=== PATIENT | female | born 1970 | race Caucasian/White ===

== ENCOUNTER 2024-06-09 08:42 | Inpatient (IN) | payer MEDICAID ==
[~2024-06-09] VITALS: Ht 152.4 cm; Wt 86.0 kg
--- NOTE | 2024-06-09 09:05 | ECG ---
[facility] Test Date: 2024-06-09 Test Time: 08:52:47 Pat Name: SHANDRA SOTO Department: ER Room: 0295T Gender: F Bodily Injury Adjuster: LUZ ELENA : 1970 Requested By: ARTURO SHEPHERD Order Number: [id number] Reading MD: Sean Khan Measurements Intervals May Rate: 66 P: 0 ND: 0 QRS: 51 QRSD: 107 T: 36 QT: 419 QTc: 439 Interpretive Statements Atrial fibrillation Low voltage, precordial leads Electronically Signed On 06-12-2024 17:35:41 PST by Sean Khan Please click the below link to view image of tracing.
--- NOTE | 2024-06-09 09:11 | ED.PDOC ---
Altered Mental Status HPI Comments 53 year old female SHIVAM presents to the ED with chief complaint of ALOC. EMS reports patient has history of dementia and is normally A/O x 1, however, family noted today that patient was acting differently than normal. EMS relays patient was found to be standing in the bathroom doing nothing and was not answering questions appropriately, only using one word responses. EMS states patient on route to the ED was able to answer some questions, but some questions she would answering incorrectly. Patient is noted to be A/O x1 during triage. Patient unable to provide any further history at this time. Chief Complaint: ALOC Time Seen by MD: 09:07 Reviewed Notes: Nurses Notes, Director Software Notes, Medications, Allergies Allergies: Coded Allergies: NO KNOWN ALLERGIES (Unverified , 06/09/24) Information Source: Patient, Emergency Med Personnel Mode of Arrival: EMS Severity: Moderate Timing: Hours Duration: Since onset Prehospital treatment: None Quality: Decreased Alertness, Change in Behavior, Confusion Recent: None History of: Dementia Past Medical History PAST MEDICAL HISTORY: Dementia, Depression Surgical History: Denies all surgeries OUTSIDE SALES ACCOUNT MANAGER History: Denies all OUTSIDE SALES ACCOUNT MANAGER Hx Family History Family History: Reviewed,noncontributory to illness Social History Smoker: Non-Smoker Alcohol: Denies ETOH Use Drugs: Denies Drug Use Lives In: Home Unable to Obtain due to: Altered Mental Status All Other Systems: Reviewed and Negative Physical Exam General Appearance: Moderate Distress, Normal HEENT: Normal ENT Inspection, PERRL/EOMI Neck: Full Range of Motion, Non-Tender, Normal, Normal Inspection Respiratory: Chest Non-Tender, Lungs Clear, No Accessory Muscle Use, No Respiratory Distress, Normal Breath Sounds Cardiovascular: No Edema, No JVD, No Murmur, No Gallop, Normal Peripheral Pulses, Regular Rate/Rhythm Breast Exam: Deferred Gastrointestinal: No Organomegaly, Non Tender, No Pulsatile Mass, Normal Bowel Sounds, Soft Genitalia: Deferred Pelvic: Deferred Rectal: Deferred Extremities: No calf tenderness, Normal capillary refill, No pedal edema Musculoskeletal : Apperance: Normal Neurologic: rn primary care II-XII nml as Tested, Disoriented Cerebellar Function: NOT DONE Reflexes: NOT DONE Skin: Dry, Normal Color, Warm Peripheral Pulses: 3+ Radial (R), 3+ Radial (L) Lymphatic: No Adenopathy Was a procedure done? Was a procedure done?: No Differential Diagnosis (ALOC) Differential Diagnosis: Dehydration, Hypoglycemia, Encephalopathy X-Ray, Labs, Meds, VS Vital Signs Date Time Temp Pulse Resp B/P (MAP) Pulse Ox O2 Delivery O2 Flow Rate FiO2 06/09/24 11:00 65 12 120/63 (82) 96 06/09/24 10:45 97.6 62 12 129/62 (84) 100 97.6 06/09/24 09:49 78 19 96 Room Air* 0 21 06/09/24 09:49 98.1 78 16 121/52 (75) 96 98.1 06/09/24 08:52 66 06/09/24 08:50 97.8 70 18 124/77 (93) 95 Lab Test 06/09/24 09:30 Range/Units White Blood Count 6.2 4.4-10.8 10^3/uL Red Blood Count 4.53 4.0-5.20 10^6/uL Hemoglobin 14.0 12.2-16.2 g/dL Hematocrit 43.1 36.0-46.0 % Mean Corpuscular Volume 95.1 80.0-100.0 fL Mean Corpuscular Hemoglobin 31.0 28.0-32.0 pg Mean Corpuscular Hemoglobin Concent 32.5 32.0-36.0 g/dL Red Cell Distribution Width 12.6 11.8-14.3 % Platelet Count 223 140-450 10^3/uL Mean Platelet Volume 8.3 6.9-10.8 fL Neutrophils (%) (Auto) 75.1 37.0-80.0 % Lymphocytes (%) (Auto) 16.2 10.0-50.0 % Monocytes (%) (Auto) 6.9 0.0-12.0 % Eosinophils (%) (Auto) 1.4 0.0-7.0 % Basophils (%) (Auto) 0.4 0.0-2.0 % Neutrophils # (Auto) 4.7 1.6-8.6 10 ^3/uL Lymphocytes # (Auto) 1.0 0.4-5.4 10 ^3/uL Monocytes # (Auto) 0.4 0-1.3 10 ^3/uL Eosinophils # (Auto) 0.1 0-0.8 10 ^3/uL Basophils # (Auto) 0 0-0.2 10 ^3/uL Nucleated Red Blood Cells 0.1 % Troponin I High Sensitivity 24 </=34 ng/L Plasma/Serum Blood Alcohol < 3.0 <10 mg/dL CT Head: FINDINGS: There is no evidence of acute intracranial hemorrhage, extra-axial collection, mass effect, midline shift, herniation or hydrocephalus. The ventricles, sulci and cisterns are age appropriate. The thakur-white differentiation is intact. Patchy periventricular and subcortical white matter hypoattenuation is nonspecific but may be related to small vessel ischemic disease. The visualized paranasal sinuses and mastoid air cells are clear. The surrounding soft tissues and osseous structures are unremarkable. IMPRESSION: No acute intracranial abnormality. Chest XR: FINDINGS: Lines and Tubes: None Lungs: Clear Pleura: No effusion. No pneumothorax. Cardiomediastinal contours: Unremarkable Bones: Unremarkable IMPRESSION: No acute disease. Patient disoriented. She is altered. Unable to get history. Vitals stable. She is from a prison. No fall history. CT of the head reviewed does not show any acute changes. Chest x-ray reviewed does not show any acute changes. Continue monitoring. Images Reviewed?: Images reviewed and evaluated by me Time of 1ST Reevaluation: 10:07 Reevaluation 1ST: Unchanged Patient Education/Counseling: Diagnosis, Treatment Family Education/Counseling: No Family Present Departure 1 Departure Time of Disposition: 12:37 Impression: Primary Impression: Metabolic encephalopathy Disposition: ADMITTED INPATIENT Admit to: Med Surg Condition: Guarded Critical Care Note Critical Care Time?: No Stability Stability form required: No Heart Score Heart Score: Heart Score Response (Comments) Value History N/A 0 EKG N/A 0 Age N/A 0 Risk Factors N/A 0 Troponin N/A 0 Total 0 I personally scribed for ARTURO SHEPHERD MD ([email or web address]) on 06/09/24 at 09:11. Electronically submitted by Ollie Srivastava ([email or web address]). I personally scribed for ARTURO SHEPHERD MD ([email or web address]) on 06/09/24 at 09:39. Electronically submitted by Ollie Srivastava ([email or web address]). ARTURO SHEPHERD MD Jun 09, 2024 09:11
--- NOTE | 2024-06-09 09:24 | DVH ---
EXAM: CT HEAD WITHOUT CONTRAST INDICATION: altered TECHNIQUE: CT of the head without intravenous contrast. Radiation Dose Information: CT Dose: CTDI volume is 53.46 mGy. Dose-length product is 946.76 mGy*cm The dose indicators for CT are the volume Computed Tomography (CT) Dose Index (CTDIvol) and the Dose Length Product (DLP), and are measured in units of mGy and mGy-cm, respectively. These indicators are not patient dose, but values generated from the CT scanner acquisition factors. The report includes radiation exposure data for exposures received during this examination. COMPARISON: None FINDINGS: There is no evidence of acute intracranial hemorrhage, extra-axial collection, mass effect, midline s hift, herniation or hydrocephalus. The ventricles, sulci and cisterns are age appropriate. The thakur-white differentiation is intact. Patchy periventricular and subcortical white matter hypoattenuation is nonspecific but may be related to small vessel ischemic disease. The visualized paranasal sinuses and mastoid air cells are clear. The surrounding soft tissues and osseous structures are unremarkable. IMPRESSION: No acute intracranial abnormality.
--- NOTE | 2024-06-09 09:35 | DVH ---
CHEST RADIOGRAPH Indication: sob Technique: Single frontal view of the chest was obtained COMPARISON: None FINDINGS: Lines and Tubes: None Lungs: Clear Pleura: No effusion. No pneumothorax. Cardiomediastinal contours: Unremarkable Bones: Unremarkable IMPRESSION: No acute disease.
[2024-06-09 09:49] VITALS: PULSE 78; RESP 19; O2SAT 96
[2024-06-09 10:17] LABS: Basophils # (auto) 0 10 ^3/uL (0-0.2); Basophils % (auto) 0.4 % (0.0-2.0); Eosinophils # (auto) 0.1 10 ^3/uL (0-0.8); Eosinophils % (auto) 1.4 % (0.0-7.0); Hematocrit 43.1 % (36.0-46.0); Lymphocytes % (auto) 16.2 % (10.0-50.0); Mean Corpuscular Hgb Conc. 32.5 g/dL (32.0-36.0); Mean Corpuscular Volume 95.1 fL (80.0-100.0); Monocytes # (auto) 0.4 10 ^3/uL (0-1.3); Monocytes % (auto) 6.9 % (0.0-12.0); Neutrophils # (auto) 4.7 10 ^3/uL (1.6-8.6); Neutrophils % (auto) 75.1 % (37.0-80.0); Nucleated Red Blood Cells % 0.1 %; Platelet Count (auto) 223 10^3/uL (140-450); Red Blood Cells 4.53 10^6/uL (4.0-5.20); Red Cell Distribution Width 12.6 % (11.8-14.3); White Blood Cell 6.2 10^3/uL (4.4-10.8)
[2024-06-09 12:54] LABS: Potassium 4.2 mmol/L (3.5-5.1); Sodium 142 mmol/L (136-145)
[2024-06-09 12:55] LABS: Anion Gap 11 (5-15); Carbon Dioxide 24 mmol/L (20-31)
[2024-06-09] MEDS: LORazepam 2MG/ML-1ML VIAL IV ONE (12:55)
[2024-06-09 12:56] LABS: Calcium 10.2 mg/dL (8.7-10.4)
[2024-06-09 12:58] LABS: Chloride 107 mmol/L (98-107)
[2024-06-09 13:00] LABS: BUN/Creatinine Ratio 12.6 (10.0-20.0); Blood Urea Nitrogen 13 mg/dL (9-23)
[2024-06-09 13:12] LABS: Glucose 106 mg/dL (74-106)
[2024-06-09] MEDS: LORazepam 2MG/ML-1ML VIAL ONE (13:29)
[2024-06-09] MEDS ORDERED: DIVA1TAB37 PO (15:12)
[2024-06-09] MEDS ORDERED: OLAN1TAB PO (15:12)
[2024-06-09] MEDS ORDERED: CITA-73 PO (15:12)
[2024-06-09] MEDS ORDERED: BREX1TAB5 PO (15:12)
[2024-06-09] MEDS ORDERED: TRAZ-228 PO (15:12)
[2024-06-09] MEDS ORDERED: ONDANSETRON HCL 4 MG/2 ML VIAL IV PRN (15:15)
[2024-06-09] MEDS ORDERED: MORPHINE SULFATE INJ 2 MG/ml SYRG IV PRN (15:15)
[2024-06-09] MEDS ORDERED: LORazepam 2MG/ML-1ML VIAL IV PRN (15:15)
[2024-06-09] MEDS ORDERED: NITROGLYCERIN 0.4 MG SL TAB SL PRN (15:15)
--- NOTE | 2024-06-09 15:26 | DVHHP2 ---
History of Present Illness Reason for Visit: ALOC History of Present Illness Sid Colón is a 53-year-old female with past medical history of bipolar, possible dementia, who was brought in by EMS for ALOC. According to family, patient's health has been declining over the last 1.5 years. At baseline she is alert and oritned x 1 at most. Son states there are days when she doesn't know who he is, her own birthday, or who her cousin Polo is. She now lives at [facility] due to her declining health. She is on the residential side, and family is trying to move her to where she can receive more care. Family goes and visits daily and rotates who is there to help her. Polo is her POA and bench press operator. He goes and sees her daily and helps her with her medications, dressing, and bathing. He usually will meet her at the cafeteria for breakfast. Today when he went there, she was not there for breakfast. He went to her room and knocked, but she didn't answer. He went inside and found her naked, on the bathroom floor between the toilet and wall, convulsing. Patient has no history of seizures. He got her up, called for help, then got her dressed to come to the hospital. While in the ER patient had another episode of seizure like activity and was treated with Ativan. Psych: Bipolar Past Surgical History: None Smoke: No ALCOHOL: none Drugs: None Lives: Residential Domestic Violence: Neg Review of Systems Review of Systems Unable to obtain, patient altered, non-verbal at time of assessment Allergies: Coded Allergies: NO KNOWN ALLERGIES (Unverified , 06/09/24) Exam Vital Signs Vital Signs Date Time Temp Pulse Resp B/P (MAP) Pulse Ox O2 Delivery O2 Flow Rate FiO2 06/09/24 13:00 96 16 120/62 (81) 94 06/09/24 10:45 97.6 97.6 06/09/24 09:49 Room Air* 0 21 General Appearance: Other (altered, lethargic, did receive ativan S/P seizure) HEENT: Atraumatic, PERRLA Respiratory: Clear to auscultation, Normal air movement Cardiovascular: Regular rate, Normal S1, Normal S2, No murmurs Abdominal: Normal bowel sounds, Soft Extremities: No clubbing, No cyanosis, No edema, Normal pulses Skin: No rashes, No breakdown, No significant lesion Labs/Xrays Labs Test 06/09/24 09:30 Range/Units White Blood Count 6.2 4.4-10.8 10^3/uL Red Blood Count 4.53 4.0-5.20 10^6/uL Hemoglobin 14.0 12.2-16.2 g/dL Hematocrit 43.1 36.0-46.0 % Mean Corpuscular Volume 95.1 80.0-100.0 fL Mean Corpuscular Hemoglobin 31.0 28.0-32.0 pg Mean Corpuscular Hemoglobin Concent 32.5 32.0-36.0 g/dL Red Cell Distribution Width 12.6 11.8-14.3 % Platelet Count 223 140-450 10^3/uL Mean Platelet Volume 8.3 6.9-10.8 fL Neutrophils (%) (Auto) 75.1 37.0-80.0 % Lymphocytes (%) (Auto) 16.2 10.0-50.0 % Monocytes (%) (Auto) 6.9 0.0-12.0 % Eosinophils (%) (Auto) 1.4 0.0-7.0 % Basophils (%) (Auto) 0.4 0.0-2.0 % Neutrophils # (Auto) 4.7 1.6-8.6 10 ^3/uL Lymphocytes # (Auto) 1.0 0.4-5.4 10 ^3/uL Monocytes # (Auto) 0.4 0-1.3 10 ^3/uL Eosinophils # (Auto) 0.1 0-0.8 10 ^3/uL Basophils # (Auto) 0 0-0.2 10 ^3/uL Nucleated Red Blood Cells 0.1 % Sodium Level 142 136-145 mmol/L Potassium Level 4.2 3.5-5.1 mmol/L Chloride Level 107 98-107 mmol/L Carbon Dioxide Level 24 20-31 mmol/L Anion Gap 11 5-15 Blood Urea Nitrogen 13 9-23 mg/dL Creatinine 1.03 H 0.550-1.02 mg/dL Glomerular Filtration Rate Calc 64 >90 mL/min BUN/Creatinine Ratio 12.6 10.0-20.0 Serum Glucose 106 74-106 mg/dL Calcium Level 10.2 8.7-10.4 mg/dL Troponin I High Sensitivity 24 </=34 ng/L Plasma/Serum Blood Alcohol < 3.0 <10 mg/dL EXAM: CT HEAD WITHOUT CONTRAST COMPARISON: None FINDINGS: There is no evidence of acute intracranial hemorrhage, extra-axial collection, mass effect, midline shift, herniation or hydrocephalus. The ventricles, sulci and cisterns are age appropriate. The thakur-white differentiation is intact. Patchy periventricular and subcortical white matter hypoattenuation is nonspecific but may be related to small vessel ischemic disease. The visualized paranasal sinuses and mastoid air cells are clear. The surrounding soft tissues and osseous structures are unremarkable. IMPRESSION: No acute intracranial abnormality. CHEST RADIOGRAPH FINDINGS: Lines and Tubes: None Lungs: Clear Pleura: No effusion. No pneumothorax. Cardiomediastinal contours: Unremarkable Bones: Unremarkable IMPRESSION: No acute disease. Assessment/Plan Assessment/Plan Assessment: New onset seizure, Metabolic encephalopathy, Possible dementia, Plan: Admit to Tele, Neurology consult, MRI of brain, NPO, Swallow evaluation, IV hydration, IV Keppra, PRN Ativan for seizures, Seizure precautions, Fall risk precautions, Home medications held until swallow evaluation completed, Plan discussed with: Patient My Orders Orders - AIXA CARVAJAL Procedure Category Date Status Time Drug Screen LAB 06/09/24 Verified 15:02 * Neurology Consult CONS 06/09/24 Verified 15:02 Brain Head Wo Contrast MRI 06/09/24 Verified 15:02 Admit ADMIT 06/09/24 Verified 15:02 Code Status CODE 06/09/24 Verified 15:02 0.9% Ns 1000 Ml PHA 06/09/24 Verified 15:15 Ondansetron Hcl PHA 06/09/24 Verified (Zofran) 15:15 Enoxaparin Sodium PHA 06/10/24 Verified (Lovenox) 10:00 Fall Risk Precautions SHEREEN 06/09/[address] 15:02 Complete Blood Count LAB 06/10/24 Verified 04:00 Comprehensive LAB 06/10/24 Verified Metabolic Panel 04:00 Npo (Nothing By DIET 06/09/24 Verified Mouth) Diet Dinner Condition: Critical SHEREEN 06/09/24 Verified 15:02 Nitroglycerin PHA 06/09/24 Verified Sublingual (Ntrostat 15:15 Morphine Sulfate PHA 06/09/24 Verified Injection 15:15 Stat Ekg For Chest SHEREEN 06/09/24 Verified Pain 15:02 Notify Md Of Changes [facility] 06/09/24 Verified From Base 15:02 Filter Tip Inspector For [facility] 06/09/24 Verified 24 Hours 15:02 Emergency Dysrhythmia [facility] 06/09/24 Verified Protocol 15:02 Rhythm Strips Once [facility] 06/09/24 Verified Every Shift 15:02 Oxygen By Nasal RT 06/09/24 Verified Cannula 15:02 Seizure Precautions [facility] 06/09/[address] 15:02 * Swallow Request ST 06/09/24 Verified 15:02 Levetiracetam Ivpb PHA 06/09/24 Verified Keppra 15:15 Levetiracetam Ivpb PHA 06/09/24 Verified Keppra 22:00 Lorazepam 2mg/Ml Inj PHA 06/09/24 Verified (Ativan Inj) 15:15 Date of Service: Jun 09, 2024 Billing Provider: AIXA CARVAJAL Common Visit Codes: [id number] INP/OBS CARE (HIGH) AIXA CARVAJAL Jun 09, 2024 15:26
--- NOTE | 2024-06-09 17:20 | DVH ---
EXAMINATION: MRI BRAIN HEAD WO CONTRAST INDICATION: New onset seizures COMPARISON: CT head 06/09/2024 TECHNIQUE: Multiplanar, multisequence magnetic resonance imaging of the brain was performed without t he use of intravenous contrast. FINDINGS: There is no restricted diffusion. The thakur and white matter signal is age appropriate. There is no ev idence of hemorrhage, mass, mass effect or midline shift. There is no hydrocephalus or extra-axial fl uid collection. The visualized intracranial vasculature demonstrates appropriate flow-voids. The bila teral hippocampi appear fairly symmetric appropriate signal. The sagittal midline structures appear u nremarkable. The craniocervical junction is within normal limits. The calvarium demonstrates normal m arrow signal. The paranasal sinuses and mastoid air cells are clear. IMPRESSION: 1. Unremarkable noncontrast MRI brain. HS:Y
[2024-06-09] MEDS: levETIRAcetam 1000 mg/100ml 100 ML IV ONE (17:53)
[2024-06-09] MEDS: SODIUM CHLORIDE 0.9% 1,000 ML IV SCH (17:53)
[2024-06-09 18:09] LABS: Urine Bacteria None Seen /hpf (None Seen)
[2024-06-09 18:42] LABS: Urine Blood Negative /uL (Negative); Urine Clarity Clear (Clear); Urine Color Yellow (Yellow); Urine Hyaline Cast FEW /lpf (0 - 2); Urine Mucus FEW (None Seen); Urine Protein, UAD TRACE (Negative); Urine Specific Gravity 1.026 (1.001-1.035); Urine Squamous Epithelial Cell FEW /hpf (<5); Urine Urobilinogen Normal (Negative); Urine WBC < 1 /HPF (0-5)
[2024-06-09 18:43] LABS: Barbiturate Scree,Urine Neg (NEGATIVE); Opiate Scree,Urine Neg (NEGATIVE); Phencyclidine Screen, Urine Neg (NEGATIVE)
[2024-06-09 18:44] LABS: Amphetamine Screen, Urine Neg (NEGATIVE); Benzodiazephine Screen, Urine Neg (NEGATIVE); Cannabinoid Screen, Urine Neg (NEGATIVE); Cocaine Screen, Urine Neg (NEGATIVE)
[2024-06-09 19:40] VITALS: PULSE 62; RESP 11; O2SAT 90
[2024-06-09] MEDS: levETIRAcetam 500 mg/100ml 100 ML IV SCH (22:00)
[2024-06-09 23:47] VITALS: RESP 18; O2SAT 96
[2024-06-10] VITALS (9 sets, daily range): BP systolic 107–134; BP diastolic 54–70; PULSE 53–84; RESP 16–18; TEMP 98–99.5; O2SAT 94–100
[2024-06-10 05:58] LABS: Basophils # (auto) 0 10 ^3/uL (0-0.2); Basophils % (auto) 0.6 % (0.0-2.0); Eosinophils # (auto) 0.2 10 ^3/uL (0-0.8); Eosinophils % (auto) 2.7 % (0.0-7.0); Hematocrit 38.5 % (36.0-46.0); Hemoglobin 12.6 g/dL (12.2-16.2); Lymphocytes % (auto) 35.3 % (10.0-50.0); Mean Corpuscular Hemoglobin 31.1 pg (28.0-32.0); Mean Corpuscular Hgb Conc. 32.6 g/dL (32.0-36.0); Mean Corpuscular Volume 95.3 fL (80.0-100.0); Monocytes # (auto) 0.5 10 ^3/uL (0-1.3); Monocytes % (auto) 8.9 % (0.0-12.0); Neutrophils # (auto) 2.9 10 ^3/uL (1.6-8.6); Neutrophils % (auto) 52.5 % (37.0-80.0); Nucleated Red Blood Cells % 0.3 %; Platelet Count (auto) 182 10^3/uL (140-450); Red Blood Cells 4.04 10^6/uL (4.0-5.20); Red Cell Distribution Width 12.4 % (11.8-14.3); White Blood Cell 5.6 10^3/uL (4.4-10.8)
[2024-06-10 06:23] LABS: Albumin 3.9 g/dL (3.2-4.8); Alkaline Phosphatase 47 U/L (46-116); Anion Gap 9 (5-15); Aspartate Aminotransferase 15 U/L (13-40); BUN/Creatinine Ratio 13.3 (10.0-20.0); Blood Urea Nitrogen 11 mg/dL (9-23); Calcium 9.3 mg/dL (8.7-10.4); Carbon Dioxide 25 mmol/L (20-31); Glucose 87 mg/dL (74-106); Sodium 143 mmol/L (136-145)
[2024-06-10 06:25] LABS: Total Protein 5.9 g/dL (5.7-8.2)
[2024-06-10 06:34] LABS: Alanine Aminotransferase < 9 U/L (7-40); Bilirubin, Total 1.3 mg/dL (0.2-1.0); Chloride 109 mmol/L (98-107); Potassium 3.5 mmol/L (3.5-5.1)
[2024-06-10] MEDS: ENOXAPARIN SOD 40 MG/0.4 ML SYRINGE SC SCH (08:50)
--- NOTE | 2024-06-10 15:19 | DVHPN2 ---
Subjective 53-year-old female with a history of bipolar disorder and history of mental decline for the last few years according to her son who is at the bedside came from the nursing facility where she lives at which is [facility] in because she fell and had a seizure and had a trauma to her head According to her son she has been showing mental decline for few years now in the form of some dementia, she has a history of bipolar, but yesterday she had 2 seizures Patient is disoriented to place and time, she is only oriented to herself, she does not recognize her son who is at the bedside Changes from previous H/P or p: Changes Objective Vitals Vital Signs Date Time Temp Pulse Resp B/P (MAP) Pulse Ox O2 Delivery O2 Flow Rate FiO2 06/10/24 12:41 99.1 79 17 107/55 (72) 99 99.1 06/10/24 08:00 Room Air* 0 21 Intake/Output Intake and Output 06/10/24 07:00 Intake Total 1200 ml Output Total 250 ml Balance 950 ml Intake Oral 0 ml IV Total 1200 ml Output Urine Total 250 ml General Appearance: Alert, Other (Oriented time 1) Lungs: Clear to auscultation, Normal air movement Cardiovascular: Regular rate, Normal S1, Normal S2 Abdomen: Normal bowel sounds, Soft, No tenderness Extremities: No edema Medications Current Medications Medications Dose Ordered Sig/Rusty Route Start Time Stop Time Status Last Admin Dose Admin Sodium Chloride 1,000 ml @ 100 mls/hr Q10H IV 06/09/24 15:15 06/10/24 09:15 100 MLS/HR Ondansetron HCl 4 mg Q4HP PRN IV 06/09/24 15:15 Enoxaparin Sodium 40 mg DAILY SC 06/10/24 10:00 06/10/24 08:50 40 MG Nitroglycerin 0.4 mg Q5MINP PRN SL 06/09/24 15:15 Morphine Sulfate 2 mg Q30M PRN IV 06/09/24 15:15 Levetiracetam 100 ml @ 400 mls/hr BID IV 06/09/24 22:00 06/10/24 09:13 400 MLS/HR Lorazepam 1 mg Q5MINP PRN IV 06/09/24 15:15 Laboratory Results Laboratory Tests 06/10/24 04:45 Chemistry Test 06/10/24 04:45 Albumin 3.9 g/dL (3.2-4.8) Calcium Level 9.3 mg/dL (8.7-10.4) Total Protein 5.9 g/dL (5.7-8.2) LFT Test 06/10/24 04:45 Alanine Aminotransferase (ALT) < 9 U/L (7-40) Alkaline Phosphatase 47 U/L (46-116) Aspartate Amino Transferase (AST) 15 U/L (13-40) Total Bilirubin 1.3 mg/dL (0.2-1.0) H Urinalysis Test 06/09/24 17:47 Urine Color Yellow (Yellow) Urine Clarity Clear (Clear) Urine pH 7.0 (5.0-9.0) Urine Specific [place] 1.026 (1.001-1.035) Urine Protein Trace (Negative) H Urine Ketones Trace (Negative) Urine Blood Negative /uL (Negative) Urine Nitrite Negative (Negative) Urine Bilirubin Negative (Negative) Urine Urobilinogen Normal mg/dL (Negative) Urine Leukocyte Esterase Negative /uL (Negative) Urine RBC 2 /hpf (0 - 4) Urine Microscopic WBC < 1 /HPF (0-5) Urine Squamous Epithelial Cells Few /hpf (<5) Urine Bacteria None seen /hpf (None Seen) Urine Hyaline Casts Few /lpf (0 - 2) Urine Mucus Few (None Seen) Urine Glucose Normal mg/dL (Normal) Assessment/Plan Assessment/Plan Altered level of consciousness Underlying dementia Bipolar disorder Seizure disorder , new onset Plan Continue Keppra IV Neurology consult Check the folic acid and B12 and TSH and RPR CT scan of the head and MRI of the brain were both negative Full code Monitor closely Advance directives and plan of care was discussed with the son at the bedside for 20 minutes Plan discussed with: Patient, Son My Orders Orders - KATHLEEN KEE MD Procedure Category Date Status Time Eeg Awake/Sleep/Act EEG 06/10/24 Transmitted 15:04 Vitamin B12 LAB 06/10/24 Transmitted 15:04 Folate (Folic Acid) LAB 06/10/24 Transmitted 15:04 Thyroid Stimulating LAB 06/10/24 Verified Hormone 15:15 RPR LAB 06/10/24 Verified 15:16 Date of Service: Jun 10, 2024 Billing Provider: KATHLEEN KEE MD Common Visit Codes: [id number] INP/OBS CARE(HIGH) Secondary Visit Codes: [id number] CARE PLAN 30 MINUTES KATHLEEN KEE MD Jun 10, 2024 15:19
[2024-06-10] MEDS: risperiDONE 1 MG TAB PO ONE (16:58)
[2024-06-10 19:56] LABS: Folate (Folic Acid) 16.53 ng/mL (>5.38)
[2024-06-10] MEDS: risperiDONE 1 MG TAB PO SCH (21:16)
[2024-06-11] VITALS (9 sets, daily range): BP systolic 120–142; BP diastolic 67–95; PULSE 76–104; RESP 17–18; TEMP 97.8–98.6; O2SAT 93–100
--- NOTE | 2024-06-11 12:28 | DVHPN2 ---
Subjective No change Changes from previous H/P or p: Changes Objective Vitals Vital Signs Date Time Temp Pulse Resp B/P (MAP) Pulse Ox O2 Delivery O2 Flow Rate FiO2 06/11/24 08:00 88 06/11/24 08:00 17 96 Room Air* 0 21 06/11/24 05:00 98.1 131/78 (95) 98.1 Intake/Output Intake and Output 06/11/24 07:00 Intake Total 1560 ml Output Total 700 ml Balance 860 ml Intake Oral 460 ml IV Total 1100 ml Output Urine Total 700 ml # Voids 2 General Appearance: Alert, Other (Oriented time 1) Lungs: Clear to auscultation, Normal air movement Cardiovascular: Regular rate, Normal S1, Normal S2 Abdomen: Normal bowel sounds, Soft, No tenderness Extremities: No edema Medications Current Medications Medications Dose Ordered Sig/Rusty Route Start Time Stop Time Status Last Admin Dose Admin Sodium Chloride 1,000 ml @ 100 mls/hr Q10H IV 06/09/24 15:15 06/10/24 21:16 100 MLS/HR Ondansetron HCl 4 mg Q4HP PRN IV 06/09/24 15:15 Enoxaparin Sodium 40 mg DAILY SC 06/10/24 10:00 06/11/24 10:10 40 MG Nitroglycerin 0.4 mg Q5MINP PRN SL 06/09/24 15:15 Morphine Sulfate 2 mg Q30M PRN IV 06/09/24 15:15 Levetiracetam 100 ml @ 400 mls/hr BID IV 06/09/24 22:00 06/11/24 10:10 400 MLS/HR Lorazepam 1 mg Q5MINP PRN IV 06/09/24 15:15 Risperidone 0.5 mg BID PO 06/10/24 22:00 06/11/24 10:10 0.5 MG Laboratory Results Laboratory Tests 06/10/24 04:45 HgA1c, TSH Test 06/10/24 19:07 Thyroid Stimulating Hormone (TSH) 1.61 uIU/mL (0.55-4.78) Urinalysis Test 06/09/24 17:47 Urine Color Yellow (Yellow) Urine Clarity Clear (Clear) Urine pH 7.0 (5.0-9.0) Urine Specific [place] 1.026 (1.001-1.035) Urine Protein Trace (Negative) H Urine Ketones Trace (Negative) Urine Blood Negative /uL (Negative) Urine Nitrite Negative (Negative) Urine Bilirubin Negative (Negative) Urine Urobilinogen Normal mg/dL (Negative) Urine Leukocyte Esterase Negative /uL (Negative) Urine RBC 2 /hpf (0 - 4) Urine Microscopic WBC < 1 /HPF (0-5) Urine Squamous Epithelial Cells Few /hpf (<5) Urine Bacteria None seen /hpf (None Seen) Urine Hyaline Casts Few /lpf (0 - 2) Urine Mucus Few (None Seen) Urine Glucose Normal mg/dL (Normal) Assessment/Plan Assessment/Plan Altered level of consciousness Underlying dementia Bipolar disorder Seizure disorder , new onset Plan Continue Keppra IV Neurology consult Check the folic acid and B12 and TSH and RPR CT scan of the head and MRI of the brain were both negative Full code Monitor closely Advance directives and plan of care was discussed with the son at the bedside for 20 minutes 06/11/24: Neurology pending EEG pending Continue IV Keppra Plan discussed with: Patient, Daughter, Other My Orders Orders - KATHLEEN KEE MD Procedure Category Date Status Time Eeg Awake/Sleep/Act EEG 06/10/24 Transmitted 15:04 RPR LAB 06/10/24 In Process 15:16 Risperidone Tablet PHA 06/10/24 In Process (Risperdal Tablet) 22:00 Discontinue Johns SHEREEN 06/10/24 In Process Catheter 16:31 Date of Service: Jun 11, 2024 Billing Provider: KATHLEEN KEE MD Common Visit Codes: [id number] INP/OBS CARE(HIGH) KATHLEEN KEE MD Jun 11, 2024 12:28
--- NOTE | 2024-06-11 22:07 | DVHINCON2 ---
Date of service: Jun 11, [address] Crane Reason for Consultation New seizures History of Present Illness Ms. Colón is a 53 years old female with a history of depression, dementia, the patient was brought to the [facility] on 06/09/2024 for altered me ntal status. At this time, the patient was awake, oriented to himself only, not able to provide history, no family available for the history Apparently, with a family visit him in her SNF, she was found to be nonresponsive, convulsing in her bathroom, when she was in the emergency room, she had a witnessed seizure-like activity lasted for about 30 seconds (RN note 06/09/2024 1250 PT EXPERIENCED SEIZURE LIKE ACTIVITY DR SHEPHERD NOTIFIED, 1MG IV ATIVAN PER DR SHEPHERD. SEIZURE LASTED APPROXIMATELY 30 SECONDS) She was no history of seizure disorder, Keppra started [phone], no answer, no answer RPR, 06/11/24: UDS, 06/09/2024: Negative Plasma alcohol, 06/09/2024: <3 Urinalysis, 06/09/2024: WBC: 1, urine leukocyte esterase: Negative CBC, 06/10/2024: Unremarkable CMP, 06/10/2024: Unremarkable Vitamin B12, 06/10/2024: 299 Folic acid, 06/10/2024: 16.53 TSH, 06/10/2024: 1.61 MR head, 06/09/2024: Unremarkable noncontrast MRI brain Past Medical History Depression, dementia Past Surgical History Denies all surgeries Family History: Diabetes mellitus G8 FATHER FH: cancer G8 FATHER Family History Diabetes, cancer Social History Smoker: Non-Smoker Alcohol: Denies ETOH Use Drugs: Denies Drug Use Lives In: Home Allergies: Coded Allergies: NO KNOWN ALLERGIES (Unverified , 06/09/24) Home Meds Reported Medications Citalopram Hydrobromide (Citalopram Hydrobromide) 40 Mg Tab, 1 TAB PO DAILY 06/09/24 Trazodone Hcl (Trazodone Hcl) 100 Mg Tab, 1-2 TAB PO HS 06/09/24 Brexpiprazole (Rexulti) 3 Mg Tab, 1 TAB PO DAILY 06/09/24 Discontinued Reported Medications Divalproex Sodium (Divalproex Sodium Dr) 125 Mg Tab, 1 TAB PO TIDPRN PRN 06/09/24 Olanzapine-Samidorphan l-Malat (Lybalvi 10-10 mg) 1 Tab Tab, 1 TAB PO HS 06/09/24 Review of Systems Unobtainable Vital Signs Vital Signs Date Time Temp Pulse Resp B/P (MAP) Pulse Ox O2 Delivery O2 Flow Rate FiO2 06/11/24 20:00 Room Air* 0 21 06/11/24 17:00 97.8 88 18 142/95 (111) 100 97.8 Physical Exam GENERAL EXAM: General: the patient is well developed and nourished. No acute distress. HEENT: Normocephalic, neck is supple, no carotid bruits. No mass RESPIRATORY: Normal respiratory effort with symmetrical lung expansion. Lungs clear to auscultation. CARDIOVASCULAR: Regular rate and rhythm with no murmurs. S1, S2. ABDOMEN: Soft, nontender, normal bowel sound NEUROLOGICAL: MENTAL STATUS: HPI SPEECH, LANGUAGE, HIGHER CORTICAL FUNCTION: no aphasia or dysathria. CRANIAL NERVES: #2: Intact visual pacheco to confrontation. The optic discs were sharp #3,4,6: Pupils are equal, round and reactive. EOMs full and conjugate. #5: Facial sensation intact in all three divisions bilaterally. Mandibular str ength intact. #7: Facial muscles symmetrical and strength intact. #8: Hearing grossly normal to voice. #9,10: Uvula and soft palate rise in the midline. Swallow and voice are normal. #11: Trapezius and sternomastoid strength intact bilaterally. #12: Tongue midline. No fasciculations or atrophy. SENSATION: Sensation to touch and pinprick is normal. MOTOR: Normal tone in the upper and lower extremity. Normal muscle bulk. No fasciculations. No abnormal movements or posturing. Muscle strength of the major groups in the upper extremities is 5/5. Muscle strength of the major groups in the lower extremities is 5/5. REFLEXES: Deep tendon reflexes normal and symmetrical. No pathological reflexes. CEREBELLAR/COORDINATION: Deferred, but no ataxia noticed in the arms GAIT/STATION: deferred. Labs/Diagnostic Data Labs Test 06/11/24 05:36 06/10/24 19:07 06/10/24 04:45 06/09/24 17:47 Range/Units Vitamin B12 Level 299 211-911 pg/mL Folic Acid 16.53 >5.38 ng/mL Thyroid Stimulating Hormone (TSH) 1.61 0.55-4.78 uIU/mL White Blood Count 5.6 4.4-10.8 10^3/uL Red Blood Count 4.04 4.0-5.20 10^6/uL Hemoglobin 12.6 12.2-16.2 g/dL Hematocrit 38.5 # 36.0-46.0 % Mean Corpuscular Volume 95.3 80.0-100.0 fL Mean Corpuscular Hemoglobin 31.1 28.0-32.0 pg Mean Corpuscular Hemoglobin Concent 32.6 32.0-36.0 g/dL Red Cell Distribution Width 12.4 11.8-14.3 % Platelet Count 182 140-450 10^3/uL Mean Platelet Volume 8.2 6.9-10.8 fL Neutrophils (%) (Auto) 52.5 37.0-80.0 % Lymphocytes (%) (Auto) 35.3 10.0-50.0 % Monocytes (%) (Auto) 8.9 0.0-12.0 % Eosinophils (%) (Auto) 2.7 0.0-7.0 % Basophils (%) (Auto) 0.6 0.0-2.0 % Neutrophils # (Auto) 2.9 1.6-8.6 10 ^3/uL Lymphocytes # (Auto) 2.0 0.4-5.4 10 ^3/uL Monocytes # (Auto) 0.5 0-1.3 10 ^3/uL Eosinophils # (Auto) 0.2 0-0.8 10 ^3/uL Basophils # (Auto) 0 0-0.2 10 ^3/uL Nucleated Red Blood Cells 0.3 % Sodium Level 143 136-145 mmol/L Potassium Level 3.5 3.5-5.1 mmol/L Chloride Level 109 H 98-107 mmol/L Carbon Dioxide Level 25 20-31 mmol/L Anion Gap 9 5-15 Blood Urea Nitrogen 11 9-23 mg/dL Creatinine 0.83 0.550-1.02 mg/dL Glomerular Filtration Rate Calc 83 >90 mL/min BUN/Creatinine Ratio 13.3 10.0-20.0 Serum Glucose 87 74-106 mg/dL Calcium Level 9.3 8.7-10.4 mg/dL Total Bilirubin 1.3 H 0.2-1.0 mg/dL Aspartate Amino Transferase (AST) 15 13-40 U/L Alanine Aminotransferase (ALT) < 9 7-40 U/L Alkaline Phosphatase 47 46-116 U/L Total Protein 5.9 5.7-8.2 g/dL Albumin 3.9 3.2-4.8 g/dL Urine Color Yellow Yellow Urine Clarity Clear Clear Urine pH 7.0 5.0-9.0 Urine Specific [place] 1.026 1.001-1.035 Urine Protein Trace H Negative Urine Ketones Trace Negative Urine Blood Negative Negative /uL Urine Nitrite Negative Negative Urine Bilirubin Negative Negative Urine Urobilinogen Normal Negative mg/dL Urine Leukocyte Esterase Negative Negative /uL Urine RBC 2 0 - 4 /hpf Urine Microscopic WBC < 1 0-5 /HPF Urine Squamous Epithelial Cells Few <5 /hpf Urine Bacteria None seen None Seen /hpf Urine Hyaline Casts Few 0 - 2 /lpf Urine Mucus Few None Seen Urine Glucose Normal Normal mg/dL Urine Opiates Screen Neg NEGATIVE Urine Fentanyl Screen Neg NEGATIVE Urine Barbiturates Screen Neg NEGATIVE Urine Phencyclidine Screen Neg NEGATIVE Urine Amphetamines Screen Neg NEGATIVE Urine Benzodiazepines Screen Neg NEGATIVE Urine Cocaine Screen Neg NEGATIVE Urine Cannabinoids Screen Neg NEGATIVE Test 06/09/24 09:30 Range/Units Troponin I High Sensitivity 24 </=34 ng/L Plasma/Serum Blood Alcohol < 3.0 <10 mg/dL Assessment New onset seizure Dementia Low vitamin B12 Plan/Recommendation Monitoring Supportive treatment Telemetry Follow-up EEG Keppra 500 mg b.i.d. Vitamin B12 supplementation Ativan for seizure breakthrough DVT prophylaxis A sitter in the room Plan discussed with: Other LORETO OLIVAREZ MD Jun 11, 2024 22:07
[2024-06-12] VITALS (8 sets, daily range): BP systolic 110–138; BP diastolic 65–89; PULSE 70–99; RESP 17–18; TEMP 97.9–98.6; O2SAT 94–100
--- NOTE | 2024-06-12 00:22 | DVHEEG2 ---
Neurology EEG Procedural Note Procedural Note EXAM DATE: 06/10/2024 REFERRING DOCTOR: Dr. Vieyra TECHNIQUE: Eighteen channels of EEG, 2 channels of EOG, and 1 channel of EKG were recorded using the International 10/20 system. CLINICAL DATA: The patient was referred for an EEG evaluation for the evidence of seizure disorder. MEDICATIONS: See the chart BACKGROUND ACTIVITY: This record showed diffuse low amplitude theta activity over both hemispheres, that was reactive to external stimuli, intermixed with this was infrequent low-amplitude slow sharp waveforms over both hemispheres, however the cogeneration technician marked as a result of movement artifacts ACTIVATION: Hyperventilation: Not done Photic Stimulation: Not done Sleep: Not seen IMPRESSION: This is a mildly abnormal EEG, this EEG seen in mild cerebral dysf unction due to metabolic/hypoxic encephalopathy or medication effect, please correlate clinically The EKG channel showed a regular heart rate of 96/min. [place] [address] LORETO OLIVAREZ MD Jun 12, 2024 00:22
[2024-06-12] MEDS: CYANOCOBALAMIN (B-12) 1000 MCG/1 ML VIAL IM ONE (06:15)
[2024-06-12 08:07] LABS: RPR Non Reactive (Non Reactive)
[2024-06-12] MEDS: CYANOCOBALAMIN 500 MCG TAB PO SCH (09:19)
--- NOTE | 2024-06-12 14:10 | DVHPN2 ---
Subjective The patient is seen and examined at bedside. The patient is very confused. She did not know who she is, or where she is. Reviewed: Care Plan, H&P, Labs, Medications, Previous Orders, Radiology Changes from previous H/P or p: No Changes General: Per HPI Objective Vitals Vital Signs Date Time Temp Pulse Resp B/P (MAP) Pulse Ox O2 Delivery O2 Flow Rate FiO2 06/12/24 09:00 98.0 89 18 134/85 (101) 100 98.0 06/11/24 20:00 Room Air* 0 21 Intake/Output Intake and Output 06/12/24 07:00 Intake Total 1300 ml Balance 1300 ml Intake Oral 1200 ml IV Total 100 ml # Voids 6 # Bowel Movements 1 General Appearance: Alert, Other (Oriented time 1) Lungs: Clear to auscultation, Normal air movement Cardiovascular: Regular rate, Normal S1, Normal S2 Abdomen: Normal bowel sounds, Soft, No tenderness Extremities: No edema Medications Current Medications Medications Dose Ordered Sig/Rusty Route Start Time Stop Time Status Last Admin Dose Admin Sodium Chloride 1,000 ml @ 100 mls/hr Q10H IV 06/09/24 15:15 06/12/24 06:00 100 MLS/HR Ondansetron HCl 4 mg Q4HP PRN IV 06/09/24 15:15 Enoxaparin Sodium 40 mg DAILY SC 06/10/24 10:00 06/12/24 09:19 40 MG Nitroglycerin 0.4 mg Q5MINP PRN SL 06/09/24 15:15 Morphine Sulfate 2 mg Q30M PRN IV 06/09/24 15:15 Levetiracetam 100 ml @ 400 mls/hr BID IV 06/09/24 22:00 06/12/24 09:18 400 MLS/HR Lorazepam 1 mg Q5MINP PRN IV 06/09/24 15:15 Risperidone 0.5 mg BID PO 06/10/24 22:00 06/12/24 09:19 0.5 MG Cyanocobalamin 500 mcg DAILY PO 06/12/24 10:00 06/12/24 09:19 500 MCG Laboratory Results Laboratory Tests 06/10/24 04:45 Urinalysis Test 06/09/24 17:47 Urine Color Yellow (Yellow) Urine Clarity Clear (Clear) Urine pH 7.0 (5.0-9.0) Urine Specific [place] 1.026 (1.001-1.035) Urine Protein Trace (Negative) H Urine Ketones Trace (Negative) Urine Blood Negative /uL (Negative) Urine Nitrite Negative (Negative) Urine Bilirubin Negative (Negative) Urine Urobilinogen Normal mg/dL (Negative) Urine Leukocyte Esterase Negative /uL (Negative) Urine RBC 2 /hpf (0 - 4) Urine Microscopic WBC < 1 /HPF (0-5) Urine Squamous Epithelial Cells Few /hpf (<5) Urine Bacteria None seen /hpf (None Seen) Urine Hyaline Casts Few /lpf (0 - 2) Urine Mucus Few (None Seen) Urine Glucose Normal mg/dL (Normal) Labs and/or images reviewed: Labs reviewed by me Assessment/Plan Assessment/Plan Altered level of consciousness Underlying dementia Bipolar disorder Seizure disorder , new onset Plan [facility] Neu[facility] consult Check the folic acid and B12 and TSH and RPR CT scan of the head and MRI of the brain were both negative Full code Monitor closely Advance directives and plan of care was discussed with the son at the bedside for 20 minutes This medical document was created using an electronic medical record system with [employer]where direct computerized dictation system. Although this document has been carefully reviewed, there may still be some phonetic and typographical errors. These areas are purely typographical due to imperfections of the software programs, and do not reflect any compromise in the patient's medical care. Plan discussed with: Patient Date of Service: Jun 12, 2024 Billing Provider: SANTOS WHITT MD Common Visit Codes: [id number] INP/OBS CARE(HIGH) SANTOS WHITT MD Jun 12, 2024 14:10
[2024-06-13] VITALS (7 sets, daily range): BP systolic 124–134; BP diastolic 76–88; PULSE 67–93; RESP 17–20; TEMP 97.9–98.7; O2SAT 97–100
--- NOTE | 2024-06-13 22:30 | DVHPN2 ---
Subjective The patient is seen and examined at bedside. No change overnight. Sister at bedside. Concerned about her confused. The patient's sister wanted to know the results EEG was done by Dr. Alfaro neurologist. They request to see Dr. Alfaro Reviewed: Care Plan, H&P, Labs, Medications, Previous Orders, Radiology Changes from previous H/P or p: No Changes Objective Vitals Vital Signs Date Time Temp Pulse Resp B/P (MAP) Pulse Ox O2 Delivery O2 Flow Rate FiO2 06/13/24 20:00 Room Air* 0 21 06/13/24 17:00 98.1 67 20 128/84 (99) 98 98.1 Intake/Output Intake and Output 06/13/24 07:00 Intake Total 1425 ml Balance 1425 ml Intake Oral 1325 ml IV Total 100 ml # Voids 8 # Bowel Movements 1 General Appearance: Alert, Other Lungs: Clear to auscultation, Normal air movement Cardiovascular: Regular rate, Normal S1, Normal S2 Abdomen: Normal bowel sounds, Soft, No tenderness Extremities: No edema Medications Current Medications Medications Dose Ordered Sig/Rusty Route Start Time Stop Time Status Last Admin Dose Admin Sodium Chloride 1,000 ml @ 100 mls/hr Q10H IV 06/09/24 15:15 06/13/24 10:09 100 MLS/HR Ondansetron HCl 4 mg Q4HP PRN IV 06/09/24 15:15 Enoxaparin Sodium 40 mg DAILY SC 06/10/24 10:00 06/13/24 09:47 40 MG Nitroglycerin 0.4 mg Q5MINP PRN SL 06/09/24 15:15 Morphine Sulfate 2 mg Q30M PRN IV 06/09/24 15:15 Levetiracetam 100 ml @ 400 mls/hr BID IV 06/09/24 22:00 06/13/24 09:46 400 MLS/HR Lorazepam 1 mg Q5MINP PRN IV 06/09/24 15:15 Risperidone 0.5 mg BID PO 06/10/24 22:00 06/13/24 09:47 0.5 MG Cyanocobalamin 500 mcg DAILY PO 06/12/24 10:00 06/13/24 09:47 500 MCG Laboratory Results Laboratory Tests 06/10/24 04:45 Urinalysis Test 06/09/24 17:47 Urine Color Yellow (Yellow) Urine Clarity Clear (Clear) Urine pH 7.0 (5.0-9.0) Urine Specific [place] 1.026 (1.001-1.035) Urine Protein Trace (Negative) H Urine Ketones Trace (Negative) Urine Blood Negative /uL (Negative) Urine Nitrite Negative (Negative) Urine Bilirubin Negative (Negative) Urine Urobilinogen Normal mg/dL (Negative) Urine Leukocyte Esterase Negative /uL (Negative) Urine RBC 2 /hpf (0 - 4) Urine Microscopic WBC < 1 /HPF (0-5) Urine Squamous Epithelial Cells Few /hpf (<5) Urine Bacteria None seen /hpf (None Seen) Urine Hyaline Casts Few /lpf (0 - 2) Urine Mucus Few (None Seen) Urine Glucose Normal mg/dL (Normal) Labs and/or images reviewed: Labs reviewed by me Assessment/Plan Assessment/Plan Altered level of consciousness Underlying dementia Bipolar disorder Seizure disorder , new onset Plan Continue Keppra IV Neurology consult Check the folic acid and B12 and TSH and RPR CT scan of the head and MRI of the brain were both negative Full code Monitor closely This medical document was created using an electronic medical record system with [employer] direct computerized dictation system. Although this document has been carefully reviewed, there may still be some phonetic and typographical errors. These areas are purely typographical due to imperfections of the software programs, and do not reflect any compromise in the patient's medical care. Plan discussed with: Patient My Orders Orders - SANTOS WHITT MD Procedure Category Date Status Time * Swallow Request ST 06/13/24 Transmitted 14:26 Date of Service: Jun 13, 2024 Billing Provider: SANTOS WHITT MD Common Visit Codes: [id number] INP/OBS CARE(HIGH) SANTOS WHITT MD Jun 13, 2024 22:30
[2024-06-14 01:00] VITALS: BP 12/75; PULSE 85; RESP 16; TEMP 98; O2SAT 97
[2024-06-14 04:58] VITALS: BP 119/80; PULSE 92; RESP 17; TEMP 98.1; O2SAT 93
[2024-06-14 08:16] VITALS: PULSE 86
[2024-06-14 20:00] VITALS: PULSE 76
--- NOTE | 2024-06-14 20:22 | DVHPN2 ---
Subjective confused Changes from previous H/P or p: No Changes Objective Vitals Vital Signs Date Time Temp Pulse Resp B/P (MAP) Pulse Ox O2 Delivery O2 Flow Rate FiO2 06/14/24 08:16 86 06/14/24 08:16 Room Air* 0 21 06/14/24 04:58 98.1 17 119/80 (93) 93 98.1 Intake/Output Intake and Output 06/14/24 07:00 Intake Total 1288 ml Output Total 0 ml Balance 1288 ml Intake Oral 1188 ml IV Total 100 ml Urine/Stool Mix 0 ml # Voids 6 General Appearance: Alert, Other (confused) Lungs: Clear to auscultation, Normal air movement Cardiovascular: Regular rate, Normal S1, Normal S2 Abdomen: Normal bowel sounds, Soft, No tenderness Extremities: No edema Medications Current Medications Medications Dose Ordered Sig/Rusty Route Start Time Stop Time Status Last Admin Dose Admin Sodium Chloride 1,000 ml @ 100 mls/hr Q10H IV 06/09/24 15:15 06/14/24 05:15 100 MLS/HR Ondansetron HCl 4 mg Q4HP PRN IV 06/09/24 15:15 Enoxaparin Sodium 40 mg DAILY SC 06/10/24 10:00 06/14/24 11:12 40 MG Nitroglycerin 0.4 mg Q5MINP PRN SL 06/09/24 15:15 Morphine Sulfate 2 mg Q30M PRN IV 06/09/24 15:15 Levetiracetam 100 ml @ 400 mls/hr BID IV 06/09/24 22:00 06/14/24 11:12 400 MLS/HR Lorazepam 1 mg Q5MINP PRN IV 06/09/24 15:15 Risperidone 0.5 mg BID PO 06/10/24 22:00 06/14/24 11:12 0.5 MG Cyanocobalamin 500 mcg DAILY PO 06/12/24 10:00 06/14/24 11:12 500 MCG Laboratory Results Laboratory Tests 06/10/24 04:45 Urinalysis Test 06/09/24 17:47 Urine Color Yellow (Yellow) Urine Clarity Clear (Clear) Urine pH 7.0 (5.0-9.0) Urine Specific [place] 1.026 (1.001-1.035) Urine Protein Trace (Negative) H Urine Ketones Trace (Negative) Urine Blood Negative /uL (Negative) Urine Nitrite Negative (Negative) Urine Bilirubin Negative (Negative) Urine Urobilinogen Normal mg/dL (Negative) Urine Leukocyte Esterase Negative /uL (Negative) Urine RBC 2 /hpf (0 - 4) Urine Microscopic WBC < 1 /HPF (0-5) Urine Squamous Epithelial Cells Few /hpf (<5) Urine Bacteria None seen /hpf (None Seen) Urine Hyaline Casts Few /lpf (0 - 2) Urine Mucus Few (None Seen) Urine Glucose Normal mg/dL (Normal) Assessment/Plan Assessment/Plan Altered level of consciousness Underlying dementia Bipolar disorder Seizure disorder , new onset Plan Continue [facility] IV Neurology consult >EEG Check the folic acid and B12 and TSH and RPR CT scan of the head and MRI of the brain were both negative Full code Monitor closely Plan discussed with: Patient Date of Service: Jun 14, 2024 Billing Provider: FAUSTINO EASTON MD Common Visit Codes: [id number] INP/OBS CARE(HIGH) FAUSTINO EASTON MD Jun 14, 2024 20:22
[2024-06-14 21:00] VITALS: BP 112/62; PULSE 90; RESP 18; TEMP 98; O2SAT 97
[2024-06-15] VITALS (7 sets, daily range): BP systolic 129–153; BP diastolic 79–98; PULSE 78–99; RESP 18–19; TEMP 97.6–98.2; O2SAT 92–98
--- NOTE | 2024-06-15 16:45 | DVH ---
PROCEDURE: MRI BRAIN HEAD WO CONTRAST INDICATION: stroke rule out EXAM DATE: 06/15/2024 03:34 PM COMPARISON: MRI BRAIN HEAD WO CONTRAST on DOS: 06/09/24 TECHNIQUE: MRI of the brain without intravenous contrast. FINDINGS: Diffusion weighted images of the brain demonstrate no evidence of acute infarction. There is no evidence of acute intracranial hemorrhage, extra-axial collection, mass effect, midline s hift, herniation or hydrocephalus. The ventricles, sulci and cisterns appear age appropriate. The signal intensities of the brain parenchyma are within normal limits. There are no signal abnormalities on the susceptibility weighted sequences. The major vascular flow voids are present. The visualized paranasal sinuses and mastoid air cells are clear. The surrounding soft tissues and o sseous structures are unremarkable. IMPRESSION: 1. No evidence of acute infarction, intracranial hemorrhage, mass effect or hydrocephalus. HS:Y
--- NOTE | 2024-06-15 18:42 | DVHPN2 ---
Subjective confused Reviewed: Care Plan, H&P, Labs, Medications, Previous Orders, Radiology Changes from previous H/P or p: No Changes General: Per HPI Objective Vitals Vital Signs Date Time Temp Pulse Resp B/P (MAP) Pulse Ox O2 Delivery O2 Flow Rate FiO2 06/15/24 16:20 98.0 87 19 153/97 (115) 97 98.0 06/15/24 08:00 Room Air* 0 21 Intake/Output Intake and Output 06/15/24 07:00 Intake Total 600 ml Balance 600 ml Intake Oral 600 ml # Voids 5 # Bowel Movements 2 General Appearance: Alert, Other Lungs: Clear to auscultation, Normal air movement Cardiovascular: Regular rate, Normal S1, Normal S2 Abdomen: Normal bowel sounds, Soft, No tenderness Extremities: No edema Medications Current Medications Medications Dose Ordered Sig/Rusty Route Start Time Stop Time Status Last Admin Dose Admin Sodium Chloride 1,000 ml @ 100 mls/hr Q10H IV 06/09/24 15:15 06/14/24 01:15 100 MLS/HR Ondansetron HCl 4 mg Q4HP PRN IV 06/09/24 15:15 Enoxaparin Sodium 40 mg DAILY SC 06/10/24 10:00 06/15/24 11:24 40 MG Nitroglycerin 0.4 mg Q5MINP PRN SL 06/09/24 15:15 Morphine Sulfate 2 mg Q30M PRN IV 06/09/24 15:15 Levetiracetam 100 ml @ 400 mls/hr BID IV 06/09/24 22:00 06/15/24 13:59 400 MLS/HR Lorazepam 1 mg Q5MINP PRN IV 06/09/24 15:15 Risperidone 0.5 mg BID PO 06/10/24 22:00 06/15/24 11:24 0.5 MG Cyanocobalamin 500 mcg DAILY PO 06/12/24 10:00 06/15/24 11:24 500 MCG Laboratory Results Laboratory Tests 06/10/24 04:45 Urinalysis Test 06/09/24 17:47 Urine Color Yellow (Yellow) Urine Clarity Clear (Clear) Urine pH 7.0 (5.0-9.0) Urine Specific [place] 1.026 (1.001-1.035) Urine Protein Trace (Negative) H Urine Ketones Trace (Negative) Urine Blood Negative /uL (Negative) Urine Nitrite Negative (Negative) Urine Bilirubin Negative (Negative) Urine Urobilinogen Normal mg/dL (Negative) Urine Leukocyte Esterase Negative /uL (Negative) Urine RBC 2 /hpf (0 - 4) Urine Microscopic WBC < 1 /HPF (0-5) Urine Squamous Epithelial Cells Few /hpf (<5) Urine Bacteria None seen /hpf (None Seen) Urine Hyaline Casts Few /lpf (0 - 2) Urine Mucus Few (None Seen) Urine Glucose Normal mg/dL (Normal) Assessment/Plan Assessment/Plan Altered level of consciousness Underlying dementia Bipolar disorder Seizure disorder , new onset Plan Continue [facility] IV Neurology consult >EEG Check the folic acid and B12 and TSH and RPR CT scan of the head and MRI of the brain were both negative Repeat MRI today Full code Monitor closely Plan discussed with: Patient My Orders Orders - FAUSTINO EASTON MD Procedure Category Date Status Time Brain Head Wo Contrast MRI 06/15/24 Resulted 14:50 Date of Service: Jun 15, 2024 Billing Provider: FAUSTINO EASTON MD Common Visit Codes: [id number] INP/OBS CARE(HIGH) FAUSTINO EASTON MD Jun 15, 2024 18:41
--- NOTE | 2024-06-15 22:38 | DVHPN2 ---
Progress Note - Dictate Date Seen: Jun 15, 2024 Medical Necessity Reason Pt with a Central, PICC or Fol: No Subjective Ms. Colón is a 53 years old female with a history of depression, dementia, the patient was brought to the [facility] on 06/09/2024 for altered mental status. I have seen and examined the patient, I have talked her nurse and sitter, the patient was better, awake, oriented to person place, reasonable social skills, reading her cell phone in the bed She had a negative MRI head on 06/15/2024 At this time, the patient was awake, oriented to himself only, not able to provide history, no family available for the history RPR, 06/11/24: Nonreactive UDS, 06/09/2024: Negative Plasma alcohol, 06/09/2024: <3 Urinalysis, 06/09/2024: WBC: 1, urine leukocyte esterase: Negative CBC, 06/10/2024: Unremarkable CMP, 06/10/2024: Unremarkable Vitamin B12, 06/10/2024: 299 Folic acid, 06/10/2024: 16.53 TSH, 06/10/2024: 1.61 EEG, 06/10/2024: Mildly abnormal MRI head, 06/09/2024: Unremarkable noncontrast MRI brain MRI head, 06/15/2024:No evidence of acute infarction, intracranial hemorrhage, mass effect or hydrocephalus. vital signs Vital Sign Date Time Temp Pulse Resp B/P (MAP) Pulse Ox O2 Delivery O2 Flow Rate FiO2 06/15/24 21:00 98.0 78 18 130/87 (101) 97 98.0 06/15/24 08:00 Room Air* 0 21 Total Intake and Output 06/14/24 06/14/24 06/15/24 15:00 23:00 07:00 Intake Total 600 ml Balance 600 ml medications Current Medications Medications Dose Ordered Sig/Rusty Route Start Time Stop Time Status Last Admin Dose Admin Sodium Chloride 1,000 ml @ 100 mls/hr Q10H IV 06/09/24 15:15 06/15/24 22:02 100 MLS/HR Ondansetron HCl 4 mg Q4HP PRN IV 06/09/24 15:15 Enoxaparin Sodium 40 mg DAILY SC 06/10/24 10:00 06/15/24 11:24 40 MG Nitroglycerin 0.4 mg Q5MINP PRN SL 06/09/24 15:15 Morphine Sulfate 2 mg Q30M PRN IV 06/09/24 15:15 Levetiracetam 100 ml @ 400 mls/hr BID IV 06/09/24 22:00 06/15/24 22:02 400 MLS/HR Lorazepam 1 mg Q5MINP PRN IV 06/09/24 15:15 Risperidone 0.5 mg BID PO 06/10/24 22:00 06/15/24 22:02 0.5 MG Cyanocobalamin 500 mcg DAILY PO 06/12/24 10:00 06/15/24 11:24 500 MCG objective General: the patient is well developed and nourished. No acute distress. MENTAL STATUS: Subjective SPEECH, LANGUAGE, HIGHER CORTICAL FUNCTION: no aphasia or dysathria. CRANIAL NERVES: Pupils are equal, round and reactive. EOMs full and conjugate. Facial sensation intact in all three divisions bilaterally. Mandibular strength intact. Facial muscles symmetrical and strength intact. SENSATION: Sensation to touch and pinprick is normal. MOTOR: Normal tone in the upper and lower extremity. Normal muscle bulk. No fasciculations. No abnormal movements or posturing. Muscle strength of the major groups in the extremities is 5/5. REFLEXES: Deep tendon reflexes normal and symmetrical. No pathological reflexes. CEREBELLAR/COORDINATION: Deferred, but no ataxia noticed in the arms GAIT/STATION: deferred laboratory and microbiology Laboratory Tests 06/10/24 04:45 Test 06/10/24 04:45 Range/Units Serum Glucose 87 74-106 mg/dL Problem List New onset seizure Dementia Low vitamin B12 Assessment/Plan Monitoring Supportive treatment Telemetry Follow-up EEG Keppra 500 mg b.i.d. Vitamin B12 supplementation Ativan for seizure breakthrough DVT prophylaxis/Lovenox A sitter in the room This medical document was created using an electronic medical record system with [employer] dictation system. Although this document has been carefully reviewed, there may still be some phonetic and typographical errors. These areas are purely typographical due to imperfections of the software programs, and do not reflect any compromise in the patient's medical care. Prognosis poor Plan discussed with: Other LORETO OLIVAREZ MD Jun 15, 2024 22:38
[2024-06-16] VITALS (8 sets, daily range): BP systolic 123–144; BP diastolic 77–93; PULSE 70–103; RESP 17–20; TEMP 97.7–98.2; O2SAT 97–98
--- NOTE | 2024-06-16 16:37 | DVHPN2 ---
Subjective confused Discussed with CATHERINE nye today and updated status, discussed about needing placement Reviewed: Care Plan, H&P, Labs, Medications, Previous Orders, Radiology Changes from previous H/P or p: No Changes General: Per HPI Objective Vitals Vital Signs Date Time Temp Pulse Resp B/P (MAP) Pulse Ox O2 Delivery O2 Flow Rate FiO2 06/16/24 13:21 83 18 144/93 (110) 97 06/16/24 09:16 98.2 98.2 06/16/24 08:00 Room Air* 0 21 Intake/Output Intake and Output 06/16/24 07:00 Intake Total 1640 ml Balance 1640 ml Intake Oral 540 ml IV Total 1100 ml # Voids 4 # Bowel Movements 1 General Appearance: Alert, Other Lungs: Clear to auscultation, Normal air movement Cardiovascular: Regular rate, Normal S1, Normal S2 Abdomen: Normal bowel sounds, Soft, No tenderness Extremities: No edema Medications Current Medications Medications Dose Ordered Sig/Rusty Route Start Time Stop Time Status Last Admin Dose Admin Sodium Chloride 1,000 ml @ 100 mls/hr Q10H IV 06/09/24 15:15 06/15/24 22:02 100 MLS/HR Ondansetron HCl 4 mg Q4HP PRN IV 06/09/24 15:15 Enoxaparin Sodium 40 mg DAILY SC 06/10/24 10:00 06/16/24 10:08 40 MG Nitroglycerin 0.4 mg Q5MINP PRN SL 06/09/24 15:15 Morphine Sulfate 2 mg Q30M PRN IV 06/09/24 15:15 Levetiracetam 100 ml @ 400 mls/hr BID IV 06/09/24 22:00 06/16/24 10:07 400 MLS/HR Lorazepam 1 mg Q5MINP PRN IV 06/09/24 15:15 Risperidone 0.5 mg BID PO 06/10/24 22:00 06/16/24 10:08 0.5 MG Cyanocobalamin 500 mcg DAILY PO 06/12/24 10:00 06/16/24 10:08 500 MCG Laboratory Results Laboratory Tests 06/10/24 04:45 Urinalysis Test 06/09/24 17:47 Urine Color Yellow (Yellow) Urine Clarity Clear (Clear) Urine pH 7.0 (5.0-9.0) Urine Specific [place] 1.026 (1.001-1.035) Urine Protein Trace (Negative) H Urine Ketones Trace (Negative) Urine Blood Negative /uL (Negative) Urine Nitrite Negative (Negative) Urine Bilirubin Negative (Negative) Urine Urobilinogen Normal mg/dL (Negative) Urine Leukocyte Esterase Negative /uL (Negative) Urine RBC 2 /hpf (0 - 4) Urine Microscopic WBC < 1 /HPF (0-5) Urine Squamous Epithelial Cells Few /hpf (<5) Urine Bacteria None seen /hpf (None Seen) Urine Hyaline Casts Few /lpf (0 - 2) Urine Mucus Few (None Seen) Urine Glucose Normal mg/dL (Normal) Assessment/Plan Assessment/Plan Altered level of consciousness Underlying dementia Bipolar disorder Seizure disorder , new onset Plan Continue [facility] IV Neurology consult >EEG shows encephalopathy CT scan of the head and MRI of the brain were both negative Repeat MRI yesterday WNL Full code Monitor closely Plan discussed with: Other (CATHERINE NYE) Date of Service: Jun 16, 2024 Billing Provider: FAUSTINO EASTON MD Common Visit Codes: [id number] INP/OBS CARE(HIGH) FAUSTINO EASTON MD Jun 16, 2024 16:37
--- NOTE | 2024-06-16 20:09 | DVHPN2 ---
Progress Note - Dictate Date Seen: Jun 16, 2024 Medical Necessity Reason Pt with a Central, PICC or Fol: No Subjective Ms. Colón is a 53 years old female with a history of depression, dementia, the patient was brought to the [facility] on 06/09/2024 for altered mental status. I have seen and examined the patient, I have talked her nurse and sitter, she was awake, but is only oriented to herself, she follows verbal commands, and she was reasonable social skills. I have talked to Polo, her [id number]. When he went to her place, he witnessed the patient was on the floor shaking all over the body, nonresponsive. The patient was had never had similar problem before, no history of seizure, stroke, intracranial infection, head trauma, no family history of seizure disorder. He does not remember olfactory hallucination symptoms on the patient According to Polo, her cognitive dysfunction started around 2020, in that she developed mild progressive intermittent memory problem, mostly affecting the short-term memory. She is not able to prepare a meal, do any housework, she can not dress herself properly, she sometimes malagon shoes from different pairs, she sometimes came to breakfast with shampoo left in the hair. She was not on donepezil, memantine before she came to the [facility]. Her paternal grandfather, father, her paternal aunt had Alzheimer's disease Per my observation, she has at least moderate to severe dementia, she has poor memory, I think long-term memory has been affected, she has poor judgment, she is not able to take herself, she can not be left alone/needs continuous supervision RPR, 06/11/24: Nonreactive UDS, 06/09/2024: Negative Plasma alcohol, 06/09/2024: <3 Urinalysis, 06/09/2024: WBC: 1, urine leukocyte esterase: Negative CBC, 06/10/2024: Unremarkable CMP, 06/10/2024: Unremarkable Vitamin B12, 06/10/2024: 299 Folic acid, 06/10/2024: 16.53 TSH, 06/10/2024: 1.61 EEG, 06/10/2024: Mildly abnormal MRI head, 06/09/2024: Unremarkable noncontrast MRI brain MRI head, 06/15/2024:No evidence of acute infarction, intracranial hemorrhage, mass effect or hydrocephalus. vital signs Vital Sign Date Time Temp Pulse Resp B/P (MAP) Pulse Ox O2 Delivery O2 Flow Rate FiO2 06/16/24 16:52 98.0 103 18 123/77 (92) 97 98.0 06/16/24 08:00 Room Air* 0 21 Total Intake and Output 06/15/24 06/15/24 06/16/24 15:00 23:00 07:00 Intake Total 1300 ml 340 ml Balance 1300 ml 340 ml medications Current Medications Medications Dose Ordered Sig/Rusty Route Start Time Stop Time Status Last Admin Dose Admin Sodium Chloride 1,000 ml @ 100 mls/hr Q10H IV 06/09/24 15:15 06/15/24 22:02 100 MLS/HR Ondansetron HCl 4 mg Q4HP PRN IV 06/09/24 15:15 Enoxaparin Sodium 40 mg DAILY SC 06/10/24 10:00 06/16/24 10:08 40 MG Nitroglycerin 0.4 mg Q5MINP PRN SL 06/09/24 15:15 Morphine Sulfate 2 mg Q30M PRN IV 06/09/24 15:15 Levetiracetam 100 ml @ 400 mls/hr BID IV 06/09/24 22:00 06/16/24 10:07 400 MLS/HR Lorazepam 1 mg Q5MINP PRN IV 06/09/24 15:15 Risperidone 0.5 mg BID PO 06/10/24 22:00 06/16/24 10:08 0.5 MG Cyanocobalamin 500 mcg DAILY PO 06/12/24 10:00 06/16/24 10:08 500 MCG objective General: the patient is well developed and nourished. No acute distress. MENTAL STATUS: Subjective SPEECH, LANGUAGE, HIGHER CORTICAL FUNCTION: no aphasia or dysathria. CRANIAL NERVES: Pupils are equal, round and reactive. EOMs full and conjugate. Facial sensation intact in all three divisions bilaterally. Mandibular strength intact. Facial muscles symmetrical and strength intact. SENSATION: Sensation to touch and pinprick is normal. MOTOR: Normal tone in the upper and lower extremity. Normal muscle bulk. No fasciculations. No abnormal movements or posturing. Muscle strength of the major groups in the extremities is 5/5. REFLEXES: Deep tendon reflexes normal and symmetrical. No pathological reflexes. CEREBELLAR/COORDINATION: Deferred, but no ataxia noticed in the arms GAIT/STATION: deferred laboratory and microbiology Laboratory Tests 06/10/24 04:45 Test 06/10/24 04:45 Range/Units Serum Glucose 87 74-106 mg/dL Problem List New onset seizure Dementia Low vitamin B12 Assessment/Plan Monitoring Supportive treatment Telemetry Follow-up EEG Keppra 500 mg b.i.d. Vitamin B12 supplementation Ativan for seizure breakthrough DVT prophylaxis/Lovenox A sitter in the room I recommend the patient be admitted to a facility with memory care This medical document was created using an electronic medical record system with [employer] dictation system. Although this document has been carefully reviewed, there may still be some phonetic and typographical errors. These areas are purely typographical due to imperfections of the software programs, and do not reflect any compromise in the patient's medical care. Prognosis poor Plan discussed with: Other Total Time (mins): 40 LORETO OLIVAREZ MD Jun 16, 2024 20:09
[2024-06-17] VITALS (9 sets, daily range): BP systolic 106–131; BP diastolic 55–90; PULSE 76–108; RESP 17–20; TEMP 97.2–98.4; O2SAT 94–99
--- NOTE | 2024-06-17 17:51 | DVHPN2 ---
Subjective confused Discussed with CATHERINE nye today and updated status, discussed about needing placement Reviewed: Care Plan, H&P, Labs, Medications, Previous Orders, Radiology Changes from previous H/P or p: No Changes General: Per HPI Objective Vitals Vital Signs Date Time Temp Pulse Resp B/P (MAP) Pulse Ox O2 Delivery O2 Flow Rate FiO2 06/17/24 16:39 98.4 81 20 131/72 (91) 99 98.4 06/17/24 08:15 Room Air* 0 21 Intake/Output Intake and Output 06/17/24 07:00 Intake Total 1380 ml Output Total 600 ml Balance 780 ml Intake Oral 1280 ml IV Total 100 ml Output Urine Total 600 ml # Voids 3 General Appearance: Alert, Other Lungs: Clear to auscultation, Normal air movement Cardiovascular: Regular rate, Normal S1, Normal S2 Abdomen: Normal bowel sounds, Soft, No tenderness Extremities: No edema Medications Current Medications Medications Dose Ordered Sig/Rusty Route Start Time Stop Time Status Last Admin Dose Admin Sodium Chloride 1,000 ml @ 100 mls/hr Q10H IV 06/09/24 15:15 06/17/24 13:15 100 MLS/HR Ondansetron HCl 4 mg Q4HP PRN IV 06/09/24 15:15 Enoxaparin Sodium 40 mg DAILY SC 06/10/24 10:00 06/17/24 10:00 40 MG Nitroglycerin 0.4 mg Q5MINP PRN SL 06/09/24 15:15 Morphine Sulfate 2 mg Q30M PRN IV 06/09/24 15:15 Levetiracetam 100 ml @ 400 mls/hr BID IV 06/09/24 22:00 06/17/24 10:42 400 MLS/HR Lorazepam 1 mg Q5MINP PRN IV 06/09/24 15:15 Risperidone 0.5 mg BID PO 06/10/24 22:00 06/17/24 10:44 0.5 MG Cyanocobalamin 500 mcg DAILY PO 06/12/24 10:00 06/17/24 10:44 500 MCG Laboratory Results Laboratory Tests 06/10/24 04:45 Urinalysis Test 06/09/24 17:47 Urine Color Yellow (Yellow) Urine Clarity Clear (Clear) Urine pH 7.0 (5.0-9.0) Urine Specific [place] 1.026 (1.001-1.035) Urine Protein Trace (Negative) H Urine Ketones Trace (Negative) Urine Blood Negative /uL (Negative) Urine Nitrite Negative (Negative) Urine Bilirubin Negative (Negative) Urine Urobilinogen Normal mg/dL (Negative) Urine Leukocyte Esterase Negative /uL (Negative) Urine RBC 2 /hpf (0 - 4) Urine Microscopic WBC < 1 /HPF (0-5) Urine Squamous Epithelial Cells Few /hpf (<5) Urine Bacteria None seen /hpf (None Seen) Urine Hyaline Casts Few /lpf (0 - 2) Urine Mucus Few (None Seen) Urine Glucose Normal mg/dL (Normal) Assessment/Plan Assessment/Plan Altered level of consciousness Underlying dementia Bipolar disorder Seizure disorder , new onset Plan Continue [facility] IV Neurology consult >EEG shows encephalopathy CT scan of the head and MRI of the brain were both negative Repeat MRI x2 WNL Full code Monitor closely Plan discussed with: Patient Date of Service: Jun 17, 2024 Billing Provider: FAUSTINO EASTON MD Common Visit Codes: [id number] INP/OBS CARE(HIGH) FAUSTINO EASTON MD Jun 17, 2024 17:51
--- NOTE | 2024-06-17 23:53 | DVHPN2 ---
Progress Note - Dictate Date Seen: Jun 17, 2024 Medical Necessity Reason Pt with a Central, PICC or Fol: No Subjective Ms. Colón is a 53 years old female with a history of depression, dementia, the patient was brought to the [facility] on 06/09/2024 for altered mental status. I have seen and examined the patient, I have talked her nurse and sitter, oriented to person RPR, 06/11/24: Nonreactive UDS, 06/09/2024: Negative Plasma alcohol, 06/09/2024: <3 Urinalysis, 06/09/2024: WBC: 1, urine leukocyte esterase: Negative CBC, 06/10/2024: Unremarkable CMP, 06/10/2024: Unremarkable Vitamin B12, 06/10/2024: 299 Folic acid, 06/10/2024: 16.53 TSH, 06/10/2024: 1.61 EEG, 06/10/2024: Mildly abnormal MRI head, 06/09/2024: Unremarkable noncontrast MRI brain MRI head, 06/15/2024:No evidence of acute infarction, intracranial hemorrhage, mass effect or hydrocephalus. vital signs Vital Sign Date Time Temp Pulse Resp B/P (MAP) Pulse Ox O2 Delivery O2 Flow Rate FiO2 06/17/24 21:00 98.0 80 17 128/75 (92) 98 98.0 06/17/24 08:15 Room Air* 0 21 Total Intake and Output 06/16/24 06/16/24 06/17/24 15:00 23:00 07:00 Intake Total 1080 ml 300 ml Output Total 600 ml Balance 1080 ml -300 ml medications Current Medications Medications Dose Ordered Sig/Rusty Route Start Time Stop Time Status Last Admin Dose Admin Sodium Chloride 1,000 ml @ 100 mls/hr Q10H IV 06/09/24 15:15 06/17/24 13:15 100 MLS/HR Ondansetron HCl 4 mg Q4HP PRN IV 06/09/24 15:15 Enoxaparin Sodium 40 mg DAILY SC 06/10/24 10:00 06/17/24 10:00 40 MG Nitroglycerin 0.4 mg Q5MINP PRN SL 06/09/24 15:15 Morphine Sulfate 2 mg Q30M PRN IV 06/09/24 15:15 Levetiracetam 100 ml @ 400 mls/hr BID IV 06/09/24 22:00 06/17/24 22:39 400 MLS/HR Lorazepam 1 mg Q5MINP PRN IV 06/09/24 15:15 Risperidone 0.5 mg BID PO 06/10/24 22:00 06/17/24 10:44 0.5 MG Cyanocobalamin 500 mcg DAILY PO 06/12/24 10:00 06/17/24 10:44 500 MCG objective General: the patient is well developed and nourished. No acute distress. MENTAL STATUS: Subjective SPEECH, LANGUAGE, HIGHER CORTICAL FUNCTION: no aphasia or dysathria. CRANIAL NERVES: Pupils are equal, round and reactive. EOMs full and conjugate. Facial sensation intact in all three divisions bilaterally. Mandibular strength intact. Facial muscles symmetrical and strength intact. SENSATION: Sensation to touch and pinprick is normal. MOTOR: Normal tone in the upper and lower extremity. Normal muscle bulk. No fasciculations. No abnormal movements or posturing. Muscle strength of the major groups in the extremities is 5/5. REFLEXES: Deep tendon reflexes normal and symmetrical. No pathological reflexes. CEREBELLAR/COORDINATION: Deferred, but no ataxia noticed in the arms GAIT/STATION: deferred laboratory and microbiology Laboratory Tests 06/10/24 04:45 Test 06/10/24 04:45 Range/Units Serum Glucose 87 74-106 mg/dL Problem List New onset seizure Dementia Alzheimer's disease Low vitamin B12 Assessment/Plan Monitoring Supportive treatment Telemetry Follow-up EEG A trial of on Aricept 5 mg q.d. Keppra 500 mg b.i.d. Vitamin B12 supplementation Ativan for seizure breakthrough DVT prophylaxis/Lovenox A sitter in the room I recommend the patient be admitted to a facility with memory care This medical document was created using an electronic medical record system with [employer] dictation system. Although this document has been carefully reviewed, there may still be some phonetic and typographical errors. These areas are purely typographical due to imperfections of the software programs, and do not reflect any compromise in the patient's medical care. Prognosis poor Dietary Evaluation Review Recommendations by RD: Increase Calorie Intake, Protein Supplementation Comments: Recommendation 1. Ensure Enlive 8floz BID 2. Continue current plan of care Expected Outcomes/Goals: Pt will meet 75% estimated needs Fu 5-7 days Plan discussed with: Other LORETO OLIVAREZ MD Jun 17, 2024 23:53
[2024-06-18] VITALS (9 sets, daily range): BP systolic 109–152; BP diastolic 69–88; PULSE 61–111; RESP 16–18; TEMP 98.1–98.4; O2SAT 97–99
[2024-06-18] MEDS: HYDROcodone-ACET 5/325MG TAB PO PRN (11:58)
--- NOTE | 2024-06-18 18:02 | DVHPN2 ---
Subjective confused Discussed with CATHERINE nye today and updated status, discussed about needing placement Reviewed: Care Plan, H&P, Labs, Medications, Previous Orders, Radiology Changes from previous H/P or p: No Changes General: Per HPI Objective Vitals Vital Signs Date Time Temp Pulse Resp B/P (MAP) Pulse Ox O2 Delivery O2 Flow Rate FiO2 06/18/24 16:30 98.3 89 18 152/87 (108) 97 98.3 06/18/24 08:06 Room Air* 0 21 Intake/Output Intake and Output 06/18/24 07:00 Intake Total 2143 ml Output Total 4 ml Balance 2139 ml Intake Oral 743 ml IV Total 1400 ml Output Urine Total 4 ml # Voids 2 # Bowel Movements 2 General Appearance: Alert, Other Lungs: Clear to auscultation, Normal air movement Cardiovascular: Regular rate, Normal S1, Normal S2 Abdomen: Normal bowel sounds, Soft, No tenderness Extremities: No edema Medications Current Medications Medications Dose Ordered Sig/Rusty Route Start Time Stop Time Status Last Admin Dose Admin Sodium Chloride 1,000 ml @ 100 mls/hr Q10H IV 06/09/24 15:15 06/18/24 09:41 100 MLS/HR Ondansetron HCl 4 mg Q4HP PRN IV 06/09/24 15:15 Enoxaparin Sodium 40 mg DAILY SC 06/10/24 10:00 06/18/24 09:44 40 MG Nitroglycerin 0.4 mg Q5MINP PRN SL 06/09/24 15:15 Morphine Sulfate 2 mg Q30M PRN IV 06/09/24 15:15 Levetiracetam 100 ml @ 400 mls/hr BID IV 06/09/24 22:00 06/18/24 09:41 400 MLS/HR Lorazepam 1 mg Q5MINP PRN IV 06/09/24 15:15 Risperidone 0.5 mg BID PO 06/10/24 22:00 06/18/24 09:43 0.5 MG Cyanocobalamin 500 mcg DAILY PO 06/12/24 10:00 06/18/24 09:43 500 MCG Donepezil HCl 5 mg HS PO 06/18/24 22:00 Acetaminophen/ Hydrocodone Bitart 1 tab Q4HPRN PRN PO 06/18/24 11:45 06/18/24 17:31 1 TAB Laboratory Results Laboratory Tests 06/10/24 04:45 Urinalysis Test 06/09/24 17:47 Urine Color Yellow (Yellow) Urine Clarity Clear (Clear) Urine pH 7.0 (5.0-9.0) Urine Specific [place] 1.026 (1.001-1.035) Urine Protein Trace (Negative) H Urine Ketones Trace (Negative) Urine Blood Negative /uL (Negative) Urine Nitrite Negative (Negative) Urine Bilirubin Negative (Negative) Urine Urobilinogen Normal mg/dL (Negative) Urine Leukocyte Esterase Negative /uL (Negative) Urine RBC 2 /hpf (0 - 4) Urine Microscopic WBC < 1 /HPF (0-5) Urine Squamous Epithelial Cells Few /hpf (<5) Urine Bacteria None seen /hpf (None Seen) Urine Hyaline Casts Few /lpf (0 - 2) Urine Mucus Few (None Seen) Urine Glucose Normal mg/dL (Normal) Assessment/Plan Assessment/Plan Altered level of consciousness Underlying dementia Bipolar disorder Seizure disorder , new onset Plan Continue [facility] Neurology consult >EEG shows encephalopathy CT scan of the head and MRI of the brain were both negative Repeat MRI x2 WNL Full code Monitor closely Plan discussed with: Patient My Orders Orders - FAUSTINO EASTON MD Procedure Category Date Status Time Hydrocodone-Acet PHA 06/18/24 In Process 5/325mg Tab ([employer] 11:45 Date of Service: Jun 18, 2024 Billing Provider: FAUSTINO EASTON MD Common Visit Codes: [id number] INP/OBS CARE(HIGH) FAUSTINO EASTON MD Jun 18, 2024 18:01
[2024-06-18] MEDS: DONEPEZIL HYDROCHLORIDE 5 MG TAB PO SCH (22:07)
--- NOTE | 2024-06-18 22:26 | DVHPN2 ---
Progress Note - Dictate Date Seen: Jun 18, 2024 Medical Necessity Reason Pt with a Central, PICC or Fol: No Subjective Ms. Colón is a 53 years old female with a history of depression, dementia, the patient was brought to the [facility] on 06/09/2024 for altered mental status. I have seen and examined the patient, I have talked her nurse and sitter, oriented to person, he tried to pull the lines and to leave the room Otherwise no new problems RPR, 06/11/24: Nonreactive UDS, 06/09/2024: Negative Plasma alcohol, 06/09/2024: <3 Urinalysis, 06/09/2024: WBC: 1, urine leukocyte esterase: Negative CBC, 06/10/2024: Unremarkable CMP, 06/10/2024: Unremarkable Vitamin B12, 06/10/2024: 299 Folic acid, 06/10/2024: 16.53 TSH, 06/10/2024: 1.61 EEG, 06/10/2024: Mildly abnormal MRI head, 06/09/2024: Unremarkable noncontrast MRI brain MRI head, 06/15/2024:No evidence of acute infarction, intracranial hemorrhage, mass effect or hydrocephalus. vital signs Vital Sign Date Time Temp Pulse Resp B/P (MAP) Pulse Ox O2 Delivery O2 Flow Rate FiO2 06/18/24 21:00 98.2 70 18 115/69 (84) 97 98.2 06/18/24 08:06 Room Air* 0 21 Total Intake and Output 06/17/24 06/17/24 06/18/24 15:00 23:00 07:00 Intake Total 100 ml 320 ml 1723 ml Output Total 4 ml Balance 100 ml 316 ml 1723 ml medications Current Medications Medications Dose Ordered Sig/Rusty Route Start Time Stop Time Status Last Admin Dose Admin Sodium Chloride 1,000 ml @ 100 mls/hr Q10H IV 06/09/24 15:15 06/18/24 21:38 100 MLS/HR Ondansetron HCl 4 mg Q4HP PRN IV 06/09/24 15:15 Enoxaparin Sodium 40 mg DAILY SC 06/10/24 10:00 06/18/24 09:44 40 MG Nitroglycerin 0.4 mg Q5MINP PRN SL 06/09/24 15:15 Levetiracetam 100 ml @ 400 mls/hr BID IV 06/09/24 22:00 06/18/24 22:07 400 MLS/HR Lorazepam 1 mg Q5MINP PRN IV 06/09/24 15:15 Risperidone 0.5 mg BID PO 06/10/24 22:00 06/18/24 22:07 0.5 MG Cyanocobalamin 500 mcg DAILY PO 06/12/24 10:00 06/18/24 09:43 500 MCG Donepezil HCl 5 mg HS PO 06/18/24 22:00 06/18/24 22:07 5 MG Acetaminophen/ Hydrocodone Bitart 1 tab Q4HPRN PRN PO 06/18/24 11:45 06/18/24 17:31 1 TAB objective General: the patient is well developed and nourished. No acute distress. MENTAL STATUS: Subjective SPEECH, LANGUAGE, HIGHER CORTICAL FUNCTION: no aphasia or dysathria. CRANIAL NERVES: Pupils are equal, round and reactive. EOMs full and conjugate. Facial sensation intact in all three divisions bilaterally. Mandibular strength intact. Facial muscles symmetrical and strength intact. SENSATION: Sensation to touch and pinprick is normal. MOTOR: Normal tone in the upper and lower extremity. Normal muscle bulk. No fasciculations. No abnormal movements or posturing. Muscle strength of the major groups in the extremities is 5/5. REFLEXES: Deep tendon reflexes normal and symmetrical. No pathological reflexes. CEREBELLAR/COORDINATION: Deferred, but no ataxia noticed in the arms GAIT/STATION: deferred laboratory and microbiology Laboratory Tests 06/10/24 04:45 Test 06/10/24 04:45 Range/Units Serum Glucose 87 74-106 mg/dL Problem List New onset seizure Dementia Alzheimer's disease Low vitamin B12 Assessment/Plan Monitoring Supportive treatment Telemetry Aricept 5 mg q.d. Keppra 500 mg b.i.d. Vitamin B12 supplementation Ativan for seizure breakthrough DVT prophylaxis/Lovenox A sitter in the room I recommend the patient be admitted to a facility with memory care This medical document was created using an electronic medical record system with [employer] dictation system. Although this document has been carefully reviewed, there may still be some phonetic and typographical errors. These areas are purely typographical due to imperfections of the software programs, and do not reflect any compromise in the patient's medical care. Prognosis poor Dietary Evaluation Review Recommendations by RD: Increase Calorie Intake, Protein Supplementation Comments: Recommendation 1. Ensure Enlive 8floz BID 2. Continue current plan of care Expected Outcomes/Goals: Pt will meet 75% estimated needs Fu 5-7 days Plan discussed with: Other LORETO OLIVAREZ MD Jun 18, 2024 22:26
[2024-06-19] VITALS (8 sets, daily range): BP systolic 119–144; BP diastolic 71–90; PULSE 65–115; RESP 17–18; TEMP 97.5–98.3; O2SAT 94–99
--- NOTE | 2024-06-19 16:15 | DVHPN2 ---
Subjective confused Discussed with CATHERINE nye today and updated status, discussed about needing placement Reviewed: Care Plan, H&P, Labs, Medications, Previous Orders, Radiology Changes from previous H/P or p: No Changes General: Per HPI Objective Vitals Vital Signs Date Time Temp Pulse Resp B/P (MAP) Pulse Ox O2 Delivery O2 Flow Rate FiO2 06/19/24 13:00 97.5 115 18 131/84 (100) 99 97.5 06/19/24 08:00 Room Air* 0 21 Intake/Output Intake and Output 06/19/24 07:00 Intake Total 1940 ml Balance 1940 ml Intake Oral 840 ml IV Total 1100 ml # Voids 7 # Bowel Movements 1 General Appearance: Alert, Other Lungs: Clear to auscultation, Normal air movement Cardiovascular: Regular rate, Normal S1, Normal S2 Abdomen: Normal bowel sounds, Soft, No tenderness Extremities: No edema Medications Current Medications Medications Dose Ordered Sig/Rusty Route Start Time Stop Time Status Last Admin Dose Admin Sodium Chloride 1,000 ml @ 100 mls/hr Q10H IV 06/09/24 15:15 06/19/24 06:31 100 MLS/HR Ondansetron HCl 4 mg Q4HP PRN IV 06/09/24 15:15 Enoxaparin Sodium 40 mg DAILY SC 06/10/24 10:00 06/19/24 10:09 40 MG Nitroglycerin 0.4 mg Q5MINP PRN SL 06/09/24 15:15 Levetiracetam 100 ml @ 400 mls/hr BID IV 06/09/24 22:00 06/19/24 10:09 400 MLS/HR Lorazepam 1 mg Q5MINP PRN IV 06/09/24 15:15 Risperidone 0.5 mg BID PO 06/10/24 22:00 06/19/24 10:09 0.5 MG Cyanocobalamin 500 mcg DAILY PO 06/12/24 10:00 06/19/24 10:09 500 MCG Donepezil HCl 5 mg HS PO 06/18/24 22:00 06/18/24 22:07 5 MG Acetaminophen/ Hydrocodone Bitart 1 tab Q4HPRN PRN PO 06/18/24 11:45 06/19/24 13:15 1 TAB Laboratory Results Laboratory Tests 06/10/24 04:45 Urinalysis Test 06/09/24 17:47 Urine Color Yellow (Yellow) Urine Clarity Clear (Clear) Urine pH 7.0 (5.0-9.0) Urine Specific [place] 1.026 (1.001-1.035) Urine Protein Trace (Negative) H Urine Ketones Trace (Negative) Urine Blood Negative /uL (Negative) Urine Nitrite Negative (Negative) Urine Bilirubin Negative (Negative) Urine Urobilinogen Normal mg/dL (Negative) Urine Leukocyte Esterase Negative /uL (Negative) Urine RBC 2 /hpf (0 - 4) Urine Microscopic WBC < 1 /HPF (0-5) Urine Squamous Epithelial Cells Few /hpf (<5) Urine Bacteria None seen /hpf (None Seen) Urine Hyaline Casts Few /lpf (0 - 2) Urine Mucus Few (None Seen) Urine Glucose Normal mg/dL (Normal) Assessment/Plan Assessment/Plan Altered level of consciousness Underlying dementia Bipolar disorder Seizure disorder , new onset Plan Continue Kera IV Neurology consult >EEG shows encephalopathy CT scan of the head and MRI of the brain were both negative Repeat MRI x2 WNL Full code Monitor closely Plan discussed with: Patient, Daughter, Son Date of Service: Jun 19, 2024 Billing Provider: FAUSTINO EASTON MD Common Visit Codes: [id number] INP/OBS CARE(HIGH) FAUSTINO EASTON MD Jun 19, 2024 16:15
[2024-06-20] VITALS (8 sets, daily range): BP systolic 108–143; BP diastolic 71–93; PULSE 87–122; RESP 16–18; TEMP 97.6–98.7; O2SAT 95–100
--- NOTE | 2024-06-20 20:26 | DVHPN2 ---
Subjective confused Discussed with CATHERINE nye today and updated status, discussed about needing placement Reviewed: Care Plan, H&P, Labs, Medications, Previous Orders, Radiology Changes from previous H/P or p: No Changes General: Per HPI Objective Vitals Vital Signs Date Time Temp Pulse Resp B/P (MAP) Pulse Ox O2 Delivery O2 Flow Rate FiO2 06/20/24 16:38 97.9 107 16 128/87 (101) 99 97.9 06/20/24 08:00 Room Air* 0 21 Intake/Output Intake and Output 06/20/24 07:00 Intake Total 1830 ml Output Total 6 ml Balance 1824 ml Intake Oral 730 ml IV Total 1100 ml Stool Total 6 ml # Voids 1 General Appearance: Alert, Other Lungs: Clear to auscultation, Normal air movement Cardiovascular: Regular rate, Normal S1, Normal S2 Abdomen: Normal bowel sounds, Soft, No tenderness Extremities: No edema Medications Current Medications Medications Dose Ordered Sig/Rusty Route Start Time Stop Time Status Last Admin Dose Admin Sodium Chloride 1,000 ml @ 100 mls/hr Q10H IV 06/09/24 15:15 06/19/24 22:08 100 MLS/HR Ondansetron HCl 4 mg Q4HP PRN IV 06/09/24 15:15 Enoxaparin Sodium 40 mg DAILY SC 06/10/24 10:00 06/20/24 09:41 40 MG Nitroglycerin 0.4 mg Q5MINP PRN SL 06/09/24 15:15 Levetiracetam 100 ml @ 400 mls/hr BID IV 06/09/24 22:00 06/20/24 09:44 400 MLS/HR Lorazepam 1 mg Q5MINP PRN IV 06/09/24 15:15 Risperidone 0.5 mg BID PO 06/10/24 22:00 06/20/24 09:41 0.5 MG Cyanocobalamin 500 mcg DAILY PO 06/12/24 10:00 06/20/24 09:41 500 MCG Donepezil HCl 5 mg HS PO 06/18/24 22:00 06/19/24 21:51 5 MG Acetaminophen/ Hydrocodone Bitart 1 tab Q4HPRN PRN PO 06/18/24 11:45 06/20/24 11:58 1 TAB Laboratory Results Laboratory Tests 06/10/24 04:45 Urinalysis Test 06/09/24 17:47 Urine Color Yellow (Yellow) Urine Clarity Clear (Clear) Urine pH 7.0 (5.0-9.0) Urine Specific [place] 1.026 (1.001-1.035) Urine Protein Trace (Negative) H Urine Ketones Trace (Negative) Urine Blood Negative /uL (Negative) Urine Nitrite Negative (Negative) Urine Bilirubin Negative (Negative) Urine Urobilinogen Normal mg/dL (Negative) Urine Leukocyte Esterase Negative /uL (Negative) Urine RBC 2 /hpf (0 - 4) Urine Microscopic WBC < 1 /HPF (0-5) Urine Squamous Epithelial Cells Few /hpf (<5) Urine Bacteria None seen /hpf (None Seen) Urine Hyaline Casts Few /lpf (0 - 2) Urine Mucus Few (None Seen) Urine Glucose Normal mg/dL (Normal) Assessment/Plan Assessment/Plan Altered level of consciousness Underlying dementia Bipolar disorder Seizure disorder , new onset Plan Continue Keppra IV Neurology consult >EEG shows encephalopathy CT scan of the head and MRI of the brain were both negative Repeat MRI x2 WNL Full code Monitor closely Plan discussed with: Patient Date of Service: Jun 20, 2024 Billing Provider: FAUSTINO EASTON MD Common Visit Codes: [id number] INP/OBS CARE(HIGH) FAUSTINO EASTON MD Jun 20, 2024 20:26
[2024-06-21] VITALS (8 sets, daily range): BP systolic 92–146; BP diastolic 53–93; PULSE 74–103; RESP 16–18; TEMP 97.8–98.1; O2SAT 93–98
--- NOTE | 2024-06-21 12:06 | DVHPN2 ---
Subjective The patient is seen and examined at bedside. No change overnight. Reviewed: Care Plan, H&P, Labs, Medications, Previous Orders, Radiology Changes from previous H/P or p: No Changes General: Per HPI Objective Vitals Vital Signs Date Time Temp Pulse Resp B/P (MAP) Pulse Ox O2 Delivery O2 Flow Rate FiO2 06/21/24 08:50 102 18 117/77 (90) 97 06/21/24 05:00 97.8 97.8 06/20/24 20:00 Room Air* 0 21 Intake/Output Intake and Output 06/21/24 07:00 Intake Total 1450 ml Output Total 600 ml Balance 850 ml Intake Oral 1450 ml Output Urine Total 600 ml # Voids 9 # Bowel Movements 1 General Appearance: Alert, Other Lungs: Clear to auscultation, Normal air movement Cardiovascular: Regular rate, Normal S1, Normal S2 Abdomen: Normal bowel sounds, Soft, No tenderness Extremities: No edema Medications Current Medications Medications Dose Ordered Sig/Rusty Route Start Time Stop Time Status Last Admin Dose Admin Sodium Chloride 1,000 ml @ 100 mls/hr Q10H IV 06/09/24 15:15 06/21/24 10:21 100 MLS/HR Ondansetron HCl 4 mg Q4HP PRN IV 06/09/24 15:15 Enoxaparin Sodium 40 mg DAILY SC 06/10/24 10:00 06/21/24 10:21 40 MG Nitroglycerin 0.4 mg Q5MINP PRN SL 06/09/24 15:15 Levetiracetam 100 ml @ 400 mls/hr BID IV 06/09/24 22:00 06/21/24 10:20 400 MLS/HR Lorazepam 1 mg Q5MINP PRN IV 06/09/24 15:15 Risperidone 0.5 mg BID PO 06/10/24 22:00 06/21/24 10:18 0.5 MG Cyanocobalamin 500 mcg DAILY PO 06/12/24 10:00 06/21/24 10:18 500 MCG Donepezil HCl 5 mg HS PO 06/18/24 22:00 06/20/24 21:31 5 MG Acetaminophen/ Hydrocodone Bitart 1 tab Q4HPRN PRN PO 06/18/24 11:45 06/21/24 10:20 1 TAB Laboratory Results Laboratory Tests 06/10/24 04:45 Urinalysis Test 06/09/24 17:47 Urine Color Yellow (Yellow) Urine Clarity Clear (Clear) Urine pH 7.0 (5.0-9.0) Urine Specific [place] 1.026 (1.001-1.035) Urine Protein Trace (Negative) H Urine Ketones Trace (Negative) Urine Blood Negative /uL (Negative) Urine Nitrite Negative (Negative) Urine Bilirubin Negative (Negative) Urine Urobilinogen Normal mg/dL (Negative) Urine Leukocyte Esterase Negative /uL (Negative) Urine RBC 2 /hpf (0 - 4) Urine Microscopic WBC < 1 /HPF (0-5) Urine Squamous Epithelial Cells Few /hpf (<5) Urine Bacteria None seen /hpf (None Seen) Urine Hyaline Casts Few /lpf (0 - 2) Urine Mucus Few (None Seen) Urine Glucose Normal mg/dL (Normal) Assessment/Plan Assessment/Plan Altered level of consciousness Underlying dementia Bipolar disorder Seizure disorder , new onset Plan Continue Kera IV Neurology consult Check the folic acid and B12 and TSH and RPR CT scan of the head and MRI of the brain were both negative Full code Monitor closely We will transfer to assisted home facility when bed available. This medical document was created using an electronic medical record system with [employer] computerized dictation system. Although this document has been carefully reviewed, there may still be some phonetic and typographical errors. These areas are purely typographical due to imperfections of the software programs, and do not reflect any compromise in the patient's medical care. Plan discussed with: Other (RN, municipal maintenance worker.) Date of Service: Jun 21, 2024 Billing Provider: SANTOS WHITT MD Common Visit Codes: [id number] INP/OBS CARE(HIGH) SANTOS WHITT MD Jun 21, 2024 12:06
[2024-06-22 00:32] VITALS: BP 112/66; PULSE 86; RESP 16; O2SAT 94
[2024-06-22 08:00] VITALS: PULSE 103; PULSE 94; RESP 17; O2SAT 98
[2024-06-22 09:00] VITALS: BP 134/91; PULSE 94; RESP 17; TEMP 98.3; O2SAT 98
[2024-06-22] MEDS ORDERED: LEVE500T40 PO (10:57)
--- NOTE | 2024-06-22 11:01 | DVHDS2 ---
Discharge Summary Date of Admission Jun 09, 2024 at 15:21 Date of Discharge: Jun 22, 2024 Admitting Diagnosis Altered level of consciousness Underlying dementia Bipolar disorder Seizure disorder , new onset Labs/Diagnostic Data: Laboratory Results Test 06/11/24 05:36 06/10/24 19:07 06/10/24 04:45 06/09/24 17:47 Rapid Plasma Reagin Non reactive (Non Reactive) Vitamin B12 Level 299 pg/mL (211-911) Folic Acid 16.53 ng/mL (>5.38) Thyroid Stimulating Hormone (TSH) 1.61 uIU/mL (0.55-4.78) White Blood Count 5.6 10^3/uL (4.4-10.8) Red Blood Count 4.04 10^6/uL (4.0-5.20) Hemoglobin 12.6 g/dL (12.2-16.2) Hematocrit 38.5 % (36.0-46.0) Mean Corpuscular Volume 95.3 fL (80.0-100.0) Mean Corpuscular Hemoglobin 31.1 pg (28.0-32.0) Mean Corpuscular Hemoglobin Concent 32.6 g/dL (32.0-36.0) Red Cell Distribution Width 12.4 % (11.8-14.3) Platelet Count 182 10^3/uL (140-450) Mean Platelet Volume 8.2 fL (6.9-10.8) Neutrophils (%) (Auto) 52.5 % (37.0-80.0) Lymphocytes (%) (Auto) 35.3 % (10.0-50.0) Monocytes (%) (Auto) 8.9 % (0.0-12.0) Eosinophils (%) (Auto) 2.7 % (0.0-7.0) Basophils (%) (Auto) 0.6 % (0.0-2.0) Neutrophils # (Auto) 2.9 10 ^3/uL (1.6-8.6) Lymphocytes # (Auto) 2.0 10 ^3/uL (0.4-5.4) Monocytes # (Auto) 0.5 10 ^3/uL (0-1.3) Eosinophils # (Auto) 0.2 10 ^3/uL (0-0.8) Basophils # (Auto) 0 10 ^3/uL (0-0.2) Nucleated Red Blood Cells 0.3 % Sodium Level 143 mmol/L (136-145) Potassium Level 3.5 mmol/L (3.5-5.1) Chloride Level 109 mmol/L (98-107) Carbon Dioxide Level 25 mmol/L (20-31) Anion Gap 9 (5-15) Blood Urea Nitrogen 11 mg/dL (9-23) Creatinine 0.83 mg/dL (0.550-1.02) Glomerular Filtration Rate Calc 83 mL/min (>90) BUN/Creatinine Ratio 13.3 (10.0-20.0) Serum Glucose 87 mg/dL (74-106) Calcium Level 9.3 mg/dL (8.7-10.4) Total Bilirubin 1.3 mg/dL (0.2-1.0) Aspartate Amino Transferase (AST) 15 U/L (13-40) Alanine Aminotransferase (ALT) < 9 U/L (7-40) Alkaline Phosphatase 47 U/L (46-116) Total Protein 5.9 g/dL (5.7-8.2) Albumin 3.9 g/dL (3.2-4.8) Urine Color Yellow (Yellow) Urine Clarity Clear (Clear) Urine pH 7.0 (5.0-9.0) Urine Specific [place] 1.026 (1.001-1.035) Urine Protein Trace (Negative) Urine Ketones Trace (Negative) Urine Blood Negative /uL (Negative) Urine Nitrite Negative (Negative) Urine Bilirubin Negative (Negative) Urine Urobilinogen Normal mg/dL (Negative) Urine Leukocyte Esterase Negative /uL (Negative) Urine RBC 2 /hpf (0 - 4) Urine Microscopic WBC < 1 /HPF (0-5) Urine Squamous Epithelial Cells Few /hpf (<5) Urine Bacteria None seen /hpf (None Seen) Urine Hyaline Casts Few /lpf (0 - 2) Urine Mucus Few (None Seen) Urine Glucose Normal mg/dL (Normal) Urine Opiates Screen Neg (NEGATIVE) Urine Fentanyl Screen Neg (NEGATIVE) Urine Barbiturates Screen Neg (NEGATIVE) Urine Phencyclidine Screen Neg (NEGATIVE) Urine Amphetamines Screen Neg (NEGATIVE) Urine Benzodiazepines Screen Neg (NEGATIVE) Urine Cocaine Screen Neg (NEGATIVE) Urine Cannabinoids Screen Neg (NEGATIVE) Test 06/09/24 09:30 Troponin I High Sensitivity 24 ng/L (</=34) Plasma/Serum Blood Alcohol < 3.0 mg/dL (<10) Other Laboratory Tests 06/10/24 04:45 Brief Hx & Hospital Course: 53 years old female with past medical history bipolar, possible dementia not in by family regarding to altered mental status. The patient apparently had been declining over the past 1-1/2 year. Per family she did not know who she was, did not know who is the son is, she did not know her birthday or her cousin who is very close to her. She lives in [place] in due to declined health. According to her son the cousin came by prior to this admission and knock on the door but the patient did not answer. He went inside and found her naked in the bathroom floor between the toilet and the wall and had convulsion. The patient was admitted in the hospital. CT head and MRI of the brain showed no acute process. Patient did not have any indication of infection. The patient remained confused and wandering. Urologist was seeing her. The patient was diagnosis [facility] EEG is unremarkable. Patient did not have any more seizure activity. The patient remained confused in not alert oriented. The patient will be discharged to a new [facility] today. Activity as tolerated. Diet per home diet. Follow up with primary care physician 1-2 weeks. Follow up with Neurology per schedule. Physical exam: HEENT: Normocephalic atraumatic pupils equal react to light and accommodation. Extraocular muscles intact, conjunctiva pink, oropharynx moist, no thrush, no exudate. Lymphatic: No lymphadenopathy Cardiovascular exam: S1, S2 was heard. No murmurs, rubs, gallops Lung: Clear on auscultation bilaterally, no wheeze, rale, rhonchi. GI: Abdominal soft, nondistended, nontenderness, positive bowel sounds. Extremity: No crepitus, cyanosis, edema. Pedal pulses present bilateral. Full range of motion. Skin: Normal turgor, no rash. Psych: Alert, baseline dementia. Neurology: No focal deficits, cranial nerve II to XII grossly intact. This medical document was created using an electronic medical record system with [email or web address] computerized dictation system. Although this document has been carefully reviewed, there may still be some phonetic and typographical errors. These areas are purely typographical due to imperfections of the software programs, and do not reflect any compromise in the patient's medical care. Condition at Discharge: Stable Final Diagnosis/Problems List Altered level of consciousness Underlying dementia Bipolar disorder Seizure disorder , new onset Discharge Disposition: Residential Retirement Discharge Instruct/Medications Diet: Cardiac 2g Na,low cholest Activity: No Restrictions, As Tolerated Follow Up/Referral: pcp 1-2 weeks Medications: keppra 500mg bid Discharge Statement: "Patient was advised to return to the ER or call 911 if any headaches, dizziness, shortness of breath, chest pain, abdominal pain, bleeding, fevers, or worsening of medical condition. Patient was counseled about treatment plan, medications, possible side effects, patientverbalized understanding. All questions were answered to the best of my ability. This discharge took greater then 30 minutes in planning, reviewing documentation, counseling the patient, and discussing with other team members." ASSESSMENT ASSESSMENT Assessment encephalopathy Date of Service: Jun 22, 2024 Billing Provider: SANTOS WHITT MD Common Visit Codes: [id number] DISCH DAY >30min SANTOS WHITT MD Jun 22, 2024 11:01
== END 2024-06-22 12:49 | disposition home or self-care (01) | DRG 53 ==
LOC: EEVIPCON 08:42 → ER 08:42 → EDBD 08:42 → OVERFLOW 15:21 → TELE-WESTW 23:30
PROVIDERS: ADMIT Internal Medicine; ATTEND Internal Medicine
PROC: 4A00X4Z Measurement of Central Nervous Electrical Activity, External Approach (ICD-10-PCS; principal; 2024-06-12)
DX: G40.909 Epilepsy, unspecified, not intractable, without status epilepticus (principal); G93.41 Metabolic encephalopathy; G30.9 Alzheimer's disease, unspecified; F02.B3 Dementia in other diseases classified elsewhere, moderate, with mood disturbance; E53.8 Deficiency of other specified B group vitamins; F31.9 Bipolar disorder, unspecified; Z82.0 Family history of epilepsy and other diseases of the nervous system; Z79.899 Other long term (current) drug therapy; Z83.3 Family history of diabetes mellitus
CPT/HCPCS: 36415; 70450; 70551; 71045; 80048; 80053; 80307; 80320; 81001; 82607; 82746; 84443; 84484; 85025; 86592; 92610; 93005; 95819; G0378

== ENCOUNTER 2024-08-19 03:59 | Inpatient (IN) | payer MEDICAID ==
[~2024-08-19] VITALS: Ht 172.7 cm; Wt 81.7 kg
[~2024-08-19 03:59] MED LIST: BREX1TAB5 PO; CITA-73 PO; LEVE500T40 PO; TRAZ-228 PO
[2024-08-19 04:20] VITALS: PULSE 90; RESP 12; O2SAT 95
--- NOTE | 2024-08-19 04:24 | ED.PDOC ---
History of Present Illness HPI Comments 53 year old female presents to the ED via EMS with a chief complaint of seizures onset today (08/19/24). Per EMS, patient is from [facility], caregiver was changing patient's diaper when she began shaking, nurse believed it was a seizure. Patient is A&O x0, baseline for patient. PMHx Dementia, Alzheimer, seizure. No other symptoms or modifying factors present at this time. She was admitted to this facility May of 2024. The patient was diagnosis with new onset seizure and started on Keppra. EEG was unremarkable. The patient remained confused and not alert oriented during the admission. Chief Complaint: Seizure Time Seen by MD: 04:08 Reviewed Notes: Medications, Allergies Allergies: Coded Allergies: NO KNOWN ALLERGIES (Unverified , 06/09/24) Home Meds Active Scripts Levetiracetam (Keppra) 500 Mg Tab, 1 TAB PO BID, #180 TAB 3 Refills Prov:SANTOS WHITT MD 06/22/24 Reported Medications Citalopram Hydrobromide (Citalopram Hydrobromide) 40 Mg Tab, 1 TAB PO DAILY 06/09/24 Trazodone Hcl (Trazodone Hcl) 100 Mg Tab, 1-2 TAB PO HS 06/09/24 Brexpiprazole (Rexulti) 3 Mg Tab, 1 TAB PO DAILY 06/09/24 Information Source: Patient, Emergency Med Personnel Mode of Arrival: EMS Severity: Moderate Timing: Hours Duration: Since onset Prehospital treatment: None Vital Signs Vital Signs Date Time Temp Pulse Resp B/P (MAP) Pulse Ox O2 Delivery O2 Flow Rate FiO2 08/19/24 08:50 70 10 95 Room Air* 0 21 08/19/24 08:00 98.1 99/43 (61) 98.1 Physical Exam General: Awake, alert and oriented. No acute distress. Skin: Skin in warm, dry and intact without rashes or lesions. HEENT: The head is normocephalic and atraumatic. Conjunctivae are clear without exudates or hemorrhage. Sclera is non-icteric. Neck: Normal range of motion. No JVD. Cardiac: Regular rate Respiratory: No signs of respiratory distress. No Stridor. Extremities: Upper and lower extremities are atraumatic in appearance without deformity. Patient is moving all extremities spontaneously. Neurological: The patient is awake, alert oriented to person. There is no facial asymmetry. Psychiatric: Appropriate mood and affect. Good judgement and insight. Review of Systems: REVIEW OF SYSTEMS: Unable to obtain due to dementia Past Medical History PAST MEDICAL HISTORY: Alzheimer, Dementia, Depression Surgical History: Denies all surgeries CLINICAL PHARMACY MANAGER History: Denies all CLINICAL PHARMACY MANAGER Hx Family History Family History: Reviewed,noncontributory to illness Social History Smoker: Non-Smoker Alcohol: Denies ETOH Use Drugs: Denies Drug Use Lives In: Home Was a procedure done? Was a procedure done?: No Differential Dx Considerations may include: Breakthrough Seizure, electrolyte imbalance, infection, urinary tract infection, other X-Ray, Labs, Meds, VS Vital Signs Date Time Temp Pulse Resp B/P (MAP) Pulse Ox O2 Delivery O2 Flow Rate FiO2 08/19/24 08:50 70 10 95 Room Air* 0 21 08/19/24 08:00 98.1 70 11 99/43 (61) 96 98.1 08/19/24 06:00 80 11 100/45 (63) 93 08/19/24 04:20 99.0 90 12 113/68 (83) 95 99.0 08/19/24 04:20 90 12 95 Room Air* 0 21 08/19/24 04:05 98.5 110 16 104/78 (87) 97 98.5 Lab Test 08/19/24 05:20 08/19/24 04:34 08/19/24 04:26 Range/Units Urine Color Light-yellow Yellow Urine Clarity Clear Clear Urine pH 6.5 5.0-9.0 Urine Specific [place] 1.012 1.001-1.035 Urine Protein Negative Negative Urine Ketones Negative Negative Urine Blood Negative Negative /uL Urine Nitrite Negative Negative Urine Bilirubin Negative Negative Urine Urobilinogen Normal Negative mg/dL Urine Leukocyte Esterase Negative Negative /uL Urine RBC 1 0 - 4 /hpf Urine Microscopic WBC 1 0-5 /HPF Urine Squamous Epithelial Cells Few <5 /hpf Urine Bacteria None seen None Seen /hpf Urine Hyaline Casts Few 0 - 2 /lpf Urine Glucose Normal Normal mg/dL Levetiracetam Level Pending White Blood Count 4.6 4.4-10.8 10^3/uL Red Blood Count 4.45 4.0-5.20 10^6/uL Hemoglobin 13.8 12.2-16.2 g/dL Hematocrit 41.0 36.0-46.0 % Mean Corpuscular Volume 92.1 80.0-100.0 fL Mean Corpuscular Hemoglobin 30.9 28.0-32.0 pg Mean Corpuscular Hemoglobin Concent 33.6 32.0-36.0 g/dL Red Cell Distribution Width 13.3 11.8-14.3 % Platelet Count 237 140-450 10^3/uL Mean Platelet Volume 7.6 6.9-10.8 fL Neutrophils (%) (Auto) 55.2 37.0-80.0 % Lymphocytes (%) (Auto) 33.3 10.0-50.0 % Monocytes (%) (Auto) 8.0 0.0-12.0 % Eosinophils (%) (Auto) 2.5 0.0-7.0 % Basophils (%) (Auto) 1.0 0.0-2.0 % Neutrophils # (Auto) 2.5 1.6-8.6 10 ^3/uL Lymphocytes # (Auto) 1.5 0.4-5.4 10 ^3/uL Monocytes # (Auto) 0.4 0-1.3 10 ^3/uL Eosinophils # (Auto) 0.1 0-0.8 10 ^3/uL Basophils # (Auto) 0 0-0.2 10 ^3/uL Nucleated Red Blood Cells 0.0 % Sodium Level 144 136-145 mmol/L Potassium Level 3.9 3.5-5.1 mmol/L Chloride Level 108 H 98-107 mmol/L Carbon Dioxide Level 26 20-31 mmol/L Anion Gap 10 5-15 Blood Urea Nitrogen 11 9-23 mg/dL Creatinine 0.97 0.550-1.02 mg/dL Glomerular Filtration Rate Calc 69 >90 mL/min BUN/Creatinine Ratio 11.3 10.0-20.0 Serum Glucose 99 74-106 mg/dL Calcium Level 10.6 H 8.7-10.4 mg/dL Current Medications Medications (Trade) Dose Ordered Sig/Rusty Route Start Time Stop Time Status Last Admin Levetiracetam 100 ml @ 400 mls/hr ONCE ONCE IV 08/19/24 04:30 08/19/24 04:44 DC 08/19/24 04:57 Time of 1ST Reevaluation: 04:38 Reevaluation 1ST: Unchanged Patient Education/Counseling: Need For Follow Up Family Education/Counseling: No Family Present Departure 1 Departure Time of Disposition: 10:24 (Patient with a worsening seizures and altered mental status. We will admit patient for further workup and expert consultation) Impression: Primary Impression: Metabolic encephalopathy Additional Impression: Seizure disorder Disposition: ADMITTED INPATIENT Admit to: Med Surg Condition: Serious Critical Care Note Critical Care Time?: No Stability Stability form required: No I personally scribed for ANDRES HERNANDES MD ([email or web address]) on 08/19/24 at 04:24. El ectronically submitted by Demetra Richardson ([email or web address]). ANDRES HERNANDES MD August 19, 2024 04:24 COREEN MEDEL MD August 19, 2024 10:24
[2024-08-19 04:36] LABS: Basophils # (auto) 0 10 ^3/uL (0-0.2); Eosinophils # (auto) 0.1 10 ^3/uL (0-0.8); Eosinophils % (auto) 2.5 % (0.0-7.0); Hemoglobin 13.8 g/dL (12.2-16.2); Lymphocytes # (auto) 1.5 10 ^3/uL (0.4-5.4); Lymphocytes % (auto) 33.3 % (10.0-50.0); Mean Corpuscular Hemoglobin 30.9 pg (28.0-32.0); Mean Corpuscular Hgb Conc. 33.6 g/dL (32.0-36.0); Mean Corpuscular Volume 92.1 fL (80.0-100.0); Monocytes # (auto) 0.4 10 ^3/uL (0-1.3); Neutrophils # (auto) 2.5 10 ^3/uL (1.6-8.6); Neutrophils % (auto) 55.2 % (37.0-80.0); Platelet Count (auto) 237 10^3/uL (140-450); Red Blood Cells 4.45 10^6/uL (4.0-5.20); Red Cell Distribution Width 13.3 % (11.8-14.3); White Blood Cell 4.6 10^3/uL (4.4-10.8)
[2024-08-19 04:43] LABS: Potassium 3.9 mmol/L (3.5-5.1); Sodium 144 mmol/L (136-145)
[2024-08-19 04:44] LABS: Anion Gap 10 (5-15); Carbon Dioxide 26 mmol/L (20-31)
[2024-08-19 04:49] LABS: BUN/Creatinine Ratio 11.3 (10.0-20.0); Blood Urea Nitrogen 11 mg/dL (9-23); Glucose 99 mg/dL (74-106)
[2024-08-19] MEDS: levETIRAcetam 1000 mg/100ml 100 ML IV ONE (04:57)
[2024-08-19 04:59] LABS: Calcium 10.6 mg/dL (8.7-10.4); Chloride 108 mmol/L (98-107)
[2024-08-19 05:27] LABS: Urine Bacteria None Seen /hpf (None Seen)
[2024-08-19 05:37] LABS: Urine Blood Negative /uL (Negative); Urine Clarity Clear (Clear); Urine Color Light-Yellow (Yellow); Urine Hyaline Cast FEW /lpf (0 - 2); Urine Protein, UAD Negative (Negative); Urine Specific Gravity 1.012 (1.001-1.035); Urine Squamous Epithelial Cell FEW /hpf (<5); Urine Urobilinogen Normal (Negative); Urine WBC 1 /HPF (0-5); Urine pH 6.5 (5.0-9.0)
[2024-08-19 08:50] VITALS: PULSE 70; RESP 10; O2SAT 95
--- NOTE | 2024-08-19 09:56 | DVH ---
EXAM: CT HEAD WITHOUT CONTRAST INDICATION: ams TECHNIQUE: CT of the head without intravenous contrast. Radiation Dose Information: CT Dose: CTDI volume is 32.96 mGy. Dose-length product is 605.44 mGy*cm The dose indicators for CT are the volume Computed Tomography (CT) Dose Index (CTDIvol) and the Dose Length Product (DLP), and are measured in units of mGy and mGy-cm, respectively. These indicators are not patient dose, but values generated from the CT scanner acquisition factors. The report includes radiation exposure data for exposures received during this examination. COMPARISON: CT HEAD WITHOUT CONTRAST on DOS: 06/09/24 FINDINGS: There is no evidence of acute intracranial hemorrhage, extra-axial collection, mass effect, midline s hift, herniation or hydrocephalus. The ventricles, sulci and cisterns are age appropriate. The thakur-white differentiation is intact. Patchy periventricular and subcortical white matter hypoattenuation is nonspecific but may be related to small vessel ischemic disease. The visualized paranasal sinuses and mastoid air cells are clear. The surrounding soft tissues and osseous structures are unremarkable. IMPRESSION: No acute intracranial abnormality.
[2024-08-19] MEDS ORDERED: ONDANSETRON HCL 4 MG/2 ML VIAL IV PRN (11:45)
[2024-08-19] MEDS ORDERED: CYAN500T3 PO (11:49)
[2024-08-19] MEDS ORDERED: LAMO25TA27 PO (11:49)
[2024-08-19] MEDS ORDERED: QUET50TA27 PO (11:49)
--- NOTE | 2024-08-19 12:31 | DVHHP2 ---
History of Present Illness Reason for Visit: Seizure History of Present Illness Sid Colón is a 53-year-old female with past medical history of bipolar disorder, dementia, Alzheimer's, depression, and seizures who presents to the ED with seizure at [facility]. Patient was reported to have a seizure in bed asleep around 230 by staff who then called EMS. Patient's son Raffaele is at the bedside and states that the seizure has been ongoing for few months. There are no reports of the head strike or a fall. Patient's son reports that she quit drinking, does not smoke, and does not use illicit drugs. He also reports that patient was able to walk independently before but the last few years she has not been walking. The [id number] is a cousin Polo Anand per reports. Upon examination patient is able to tell me her name however is unable to tell me where she is at the situation and her date of . Patient's son reports that she has a neurologist that she also sees. Patient denies any chest pain or endorses shortness of breath, no signs of grimacing or distress noted. Per reports patient takes Keppra 750 mg b.i.d. now. Patient's son also reports that patient is able to eat foods whole with no as sistance. JANITORIAL MAINTENANCE WORKER: Other (Dementia, Alzheimer and seizures) Psych: Bipolar, Depression Past Surgical History: None Family History: Cancer, Other (Dad with lung cancer) Smoke: No ALCOHOL: none (Quit) Drugs: None Lives: Alf Domestic Violence: Neg Review of Systems Neurological: Seizures Allergies: Coded Allergies: NO KNOWN ALLERGIES (Unverified , 06/09/24) Medications Current Medications Medications Dose Ordered Sig/Rusty Route Start Time Stop Time Status Last Admin Dose Admin Ondansetron HCl 4 mg Q4HP PRN IV 08/19/24 11:45 UNV Enoxaparin Sodium 40 mg DAILY SC 08/20/24 10:00 UNV Acetaminophen 650 mg Q6HP PRN PO 08/19/24 11:45 UNV Patient Own Medication 1 tab DAILY PO 08/20/24 10:00 UNV Patient Own Medication 1 tab DAILY PO 08/20/24 10:00 UNV Exam Vital Signs Vital Signs Date Time Temp Pulse Resp B/P (MAP) Pulse Ox O2 Delivery O2 Flow Rate FiO2 08/19/24 08:50 70 10 95 Room Air* 0 21 08/19/24 08:00 98.1 99/43 (61) 98.1 General Appearance: Alert, No acute distress HEENT: Atraumatic, PERRLA, EOMI, Mucous membr. moist/pink Respiratory: Clear to auscultation, Normal air movement Cardiovascular: Normal S1, Normal S2, No murmurs Abdominal: Normal bowel sounds, Soft Extremities: No clubbing, No cyanosis, Normal pulses Neuro: Normal tone, Sensation intact Labs/Xrays Labs Test 08/19/24 05:20 08/19/24 04:34 08/19/24 04:26 Range/Units Urine Color Light-yellow Yellow Urine Clarity Clear Clear Urine pH 6.5 5.0-9.0 Urine Specific [place] 1.012 1.001-1.035 Urine Protein Negative Negative Urine Ketones Negative Negative Urine Blood Negative Negative /uL Urine Nitrite Negative Negative Urine Bilirubin Negative Negative Urine Urobilinogen Normal Negative mg/dL Urine Leukocyte Esterase Negative Negative /uL Urine RBC 1 0 - 4 /hpf Urine Microscopic WBC 1 0-5 /HPF Urine Squamous Epithelial Cells Few <5 /hpf Urine Bacteria None seen None Seen /hpf Urine Hyaline Casts Few 0 - 2 /lpf Urine Glucose Normal Normal mg/dL White Blood Count 4.6 4.4-10.8 10^3/uL Red Blood Count 4.45 4.0-5.20 10^6/uL Hemoglobin 13.8 12.2-16.2 g/dL Hematocrit 41.0 36.0-46.0 % Mean Corpuscular Volume 92.1 80.0-100.0 fL Mean Corpuscular Hemoglobin 30.9 28.0-32.0 pg Mean Corpuscular Hemoglobin Concent 33.6 32.0-36.0 g/dL Red Cell Distribution Width 13.3 11.8-14.3 % Platelet Count 237 140-450 10^3/uL Mean Platelet Volume 7.6 6.9-10.8 fL Neutrophils (%) (Auto) 55.2 37.0-80.0 % Lymphocytes (%) (Auto) 33.3 10.0-50.0 % Monocytes (%) (Auto) 8.0 0.0-12.0 % Eosinophils (%) (Auto) 2.5 0.0-7.0 % Basophils (%) (Auto) 1.0 0.0-2.0 % Neutrophils # (Auto) 2.5 1.6-8.6 10 ^3/uL Lymphocytes # (Auto) 1.5 0.4-5.4 10 ^3/uL Monocytes # (Auto) 0.4 0-1.3 10 ^3/uL Eosinophils # (Auto) 0.1 0-0.8 10 ^3/uL Basophils # (Auto) 0 0-0.2 10 ^3/uL Nucleated Red Blood Cells 0.0 % Sodium Level 144 136-145 mmol/L Potassium Level 3.9 3.5-5.1 mmol/L Chloride Level 108 H 98-107 mmol/L Carbon Dioxide Level 26 20-31 mmol/L Anion Gap 10 5-15 Blood Urea Nitrogen 11 9-23 mg/dL Creatinine 0.97 0.550-1.02 mg/dL Glomerular Filtration Rate Calc 69 >90 mL/min BUN/Creatinine Ratio 11.3 10.0-20.0 Serum Glucose 99 74-106 mg/dL Calcium Level 10.6 H 8.7-10.4 mg/dL EXAM: CT HEAD WITHOUT CONTRAST INDICATION: ams TECHNIQUE: CT of the head without intravenous contrast. Radiation Dose Information: CT Dose: CTDI volume is 32.96 mGy. Dose-length product is 605.44 mGy*cm The dose indicators for CT are the volume Computed Tomography (CT) Dose Index (CTDIvol) and the Dose Length Product (DLP), and are measured in units of mGy and mGy-cm, respectively. These indicators are not patient dose, but values generated from the CT scanner acquisition factors. The report includes radiation exposure data for exposures received during this examination. COMPARISON: CT HEAD WITHOUT CONTRAST on DOS: 06/09/24 FINDINGS: There is no evidence of acute intracranial hemorrhage, extra-axial collection, mass effect, midline shift, herniation or hydrocephalus. The ventricles, sulci and cisterns are age appropriate. The thakur-white differentiation is intact. Patchy periventricular and subcortical white matter hypoattenuation is nonspecific but may be related to small vessel ischemic disease. The visualized paranasal sinuses and mastoid air cells are clear. The surrounding soft tissues and osseous structures are unremarkable. IMPRESSION: No acute intracranial abnormality. Assessment/Plan Assessment/Plan Assessment Seizures History of bipolar disorder History of dementia History of Alzheimer's History of depression Ex alcohol use [facility] Plan Admit to med surge Seizure precautions CT head noted UA UDS Chest x-ray Diet Home medications reconciled DVT prophylaxis-Lovenox PUD prophylaxis-not indicated no history of GERD or GI bleed Discussed plan of care with patient's son, patient, and nurse Neurology consult Counseling of continued cessation of alcohol use Plan discussed with: Patient, Son My Orders Orders - ROSEMARY JOSE Procedure Category Date Status Time * Neurology Consult CONS 08/19/24 Transmitted 11:45 Seizure Precautions ED NURSING 08/19/24 Transmitted Drug Screen LAB 08/19/24 Logged 11:45 Admit ADMIT 08/19/24 Transmitted 11:45 Allergies SHEREEN 08/19/24 In Process 11:45 Code Status CODE 08/19/24 Transmitted 11:45 Ondansetron Hcl PHA 08/19/24 Logged (Zofran) 11:45 Enoxaparin Sodium PHA 08/20/24 Logged (Lovenox) 10:00 Complete Blood Count LAB 08/20/24 Verified 04:00 Comprehensive LAB 08/20/24 Verified Metabolic Panel 04:00 Cardiac DIET 08/19/24 Transmitted Diet-2gna,Lofat,Lochol Lunch Acetaminophen Tablet PHA 08/19/24 Logged (Tylenol Tablet) 11:45 (Nf) Brexpiprazole PHA 08/20/24 Logged (Rexulti) 10:00 (Nf) Citalopram PHA 08/20/24 Logged Hydrobromide 10:00 Cyanocobalamin PHA 08/20/24 Transmitted (Vitamin B-12) 10:00 (Nf) Lamotrigine PHA 08/20/24 Transmitted 10:00 (Nf) Quetiapine PHA 08/19/24 Transmitted Fumerate (Quetiapine 22:00 Date of Service: August 19, 2024 Billing Provider: ROSEMARY JOSE Common Visit Codes: [id number] INP/OBS CARE (HIGH) ROSEMARY JOSE August 19, 2024 12:31
[2024-08-19 13:26] LABS: Amphetamine Screen, Urine Neg (NEGATIVE); Barbiturate Scree,Urine Neg (NEGATIVE); Benzodiazephine Screen, Urine Neg (NEGATIVE); Cannabinoid Screen, Urine Neg (NEGATIVE); Cocaine Screen, Urine Neg (NEGATIVE); Opiate Scree,Urine Neg (NEGATIVE); Phencyclidine Screen, Urine Neg (NEGATIVE)
--- NOTE | 2024-08-19 13:40 | DVH ---
CHEST RADIOGRAPH Indication: r/o asp Technique: Single frontal view of the chest was obtained Comparison: XY CHEST PORTABLE on DOS: 06/09/24 FINDINGS: Lines and Tubes: None Lungs: No focal consolidation. Pleura: No effusion. No pneumothorax. Cardiomediastinal contours: Unremarkable Bones: No acute osseous abnormality. IMPRESSION: No acute cardiopulmonary disease.
[2024-08-19] MEDS: HALOPERIDOL 5 MG TAB PO ONE (18:43)
[2024-08-19 20:30] VITALS: PULSE 78; RESP 14; O2SAT 95
[2024-08-19] MEDS: levETIRAcetam 500 MG TAB PO SCH (22:09)
[2024-08-19] MEDS: QUEtiapine FUMARATE 25 MG TAB PO SCH (22:09)
[2024-08-19 22:22] VITALS: BP 97/52; PULSE 83; RESP 17; TEMP 98.2; O2SAT 100
[2024-08-19] MEDS ORDERED: DIVA1TAB37 PO (23:18)
[2024-08-19] MEDS ORDERED: OLAN1TAB PO (23:18)
[2024-08-19] MEDS ORDERED: LEVE750T15 PO (23:19)
[2024-08-20] VITALS (7 sets, daily range): BP systolic 96–130; BP diastolic 49–76; PULSE 61–97; RESP 17–20; TEMP 97.7–98.3; O2SAT 94–100
[2024-08-20 06:16] LABS: Basophils # (auto) 0 10 ^3/uL (0-0.2); Basophils % (auto) 0.8 % (0.0-2.0); Eosinophils # (auto) 0.2 10 ^3/uL (0-0.8); Eosinophils % (auto) 3.6 % (0.0-7.0); Hematocrit 39.4 % (36.0-46.0); Hemoglobin 13.3 g/dL (12.2-16.2); Lymphocytes # (auto) 2.5 10 ^3/uL (0.4-5.4); Lymphocytes % (auto) 49.8 % (10.0-50.0); Mean Corpuscular Hemoglobin 31.3 pg (28.0-32.0); Mean Corpuscular Hgb Conc. 33.8 g/dL (32.0-36.0); Mean Corpuscular Volume 92.7 fL (80.0-100.0); Monocytes # (auto) 0.4 10 ^3/uL (0-1.3); Monocytes % (auto) 7.5 % (0.0-12.0); Neutrophils # (auto) 1.9 10 ^3/uL (1.6-8.6); Neutrophils % (auto) 38.3 % (37.0-80.0); Nucleated Red Blood Cells % 0.2 %; Platelet Count (auto) 220 10^3/uL (140-450); Red Blood Cells 4.25 10^6/uL (4.0-5.20); Red Cell Distribution Width 13.3 % (11.8-14.3); White Blood Cell 5.1 10^3/uL (4.4-10.8)
[2024-08-20 06:25] LABS: Albumin 4.4 g/dL (3.2-4.8); Alkaline Phosphatase 65 U/L (46-116); Anion Gap 10 (5-15); BUN/Creatinine Ratio 15.7 (10.0-20.0); Blood Urea Nitrogen 16 mg/dL (9-23); Calcium 9.5 mg/dL (8.7-10.4); Carbon Dioxide 27 mmol/L (20-31); Chloride 106 mmol/L (98-107); Glucose 82 mg/dL (74-106); Sodium 143 mmol/L (136-145); Total Protein 6.9 g/dL (5.7-8.2)
[2024-08-20 06:26] LABS: Bilirubin, Total 1.1 mg/dL (0.2-1.0)
[2024-08-20 06:41] LABS: Alanine Aminotransferase < 9 U/L (7-40); Aspartate Aminotransferase 11 U/L (13-40); Potassium 3.5 mmol/L (3.5-5.1)
[2024-08-20] MEDS: BREXPIPRAZOLE 3 MG PO SCH (10:00)
[2024-08-20] MEDS: CYANOCOBALAMIN 500 MCG TAB PO SCH (10:55)
[2024-08-20] MEDS: CITALOPRAM HYDROBR 20 MG TAB PO SCH (10:55)
[2024-08-20] MEDS: lamoTRIgine 25 MG TAB PO SCH (10:55)
[2024-08-20] MEDS: ENOXAPARIN SOD 40 MG/0.4 ML SYRINGE SC SCH (10:57)
--- NOTE | 2024-08-20 16:09 | DVHPN2 ---
Subjective 53-year-old female with a history of seizures, dementia, bipolar disorder is brought to the hospital with a seizure where she lives at [facility]. Apparently she takes Keppra at home 500 mg twice a day. She has been having seizures lately frequently. Changes from previous H/P or p: Changes Objective Vitals Vital Signs Date Time Temp Pulse Resp B/P (MAP) Pulse Ox O2 Delivery O2 Flow Rate FiO2 08/20/24 13:00 98.3 79 18 96/58 (71) 94 98.3 08/20/24 08:00 Room Air* 0 21 Intake/Output Intake and Output 08/20/24 07:00 Intake Total 0 ml Balance 0 ml Intake Oral 0 ml # Voids 1 General Appearance: Alert, Oriented X3 (Allows him) Lungs: Clear to auscultation (Kristi higher than I had a), Normal air movement Cardiovascular: Regular rate, Normal S1, Normal S2 Abdomen: Normal bowel sounds, Soft, No tenderness (HighlightNine felt iodine edmund hilar) Extremities: No edema Medications Current Medications Medications Dose Ordered Sig/Rusty Route Start Time Stop Time Status Last Admin Dose Admin Ondansetron HCl 4 mg Q4HP PRN IV 08/19/24 11:45 Enoxaparin Sodium 40 mg DAILY SC 08/20/24 10:00 08/20/24 10:57 40 MG Acetaminophen 650 mg Q6HP PRN PO 08/19/24 11:45 Patient Own Medication 1 tab DAILY PO 08/20/24 10:00 Citalopram Hydrobromide 40 mg DAILY PO 08/20/24 10:00 08/20/24 10:55 40 MG Cyanocobalamin 500 mcg DAILY PO 08/20/24 10:00 08/20/24 10:55 500 MCG Lamotrigine 25 mg DAILY PO 08/20/24 10:00 08/20/24 10:55 25 MG Quetiapine Fumarate 50 mg BID PO 08/19/24 22:00 08/20/24 10:56 50 MG Levetiracetam 750 mg BID PO 08/19/24 22:00 08/20/24 10:55 750 MG Laboratory Results Laboratory Tests 08/20/24 05:00 Chemistry Test 08/20/24 05:00 Albumin 4.4 g/dL (3.2-4.8) Calcium Level 9.5 mg/dL (8.7-10.4) Total Protein 6.9 g/dL (5.7-8.2) LFT Test 08/20/24 05:00 Alanine Aminotransferase (ALT) < 9 U/L (7-40) Alkaline Phosphatase 65 U/L (46-116) Aspartate Amino Transferase (AST) 11 U/L (13-40) L Total Bilirubin 1.1 mg/dL (0.2-1.0) H Urinalysis Test 08/19/24 05:20 Urine Color Light-yellow (Yellow) Urine Clarity Clear (Clear) Urine pH 6.5 (5.0-9.0) Urine Specific [place] 1.012 (1.001-1.035) Urine Protein Negative (Negative) Urine Ketones Negative (Negative) Urine Blood Negative /uL (Negative) Urine Nitrite Negative (Negative) Urine Bilirubin Negative (Negative) Urine Urobilinogen Normal mg/dL (Negative) Urine Leukocyte Esterase Negative /uL (Negative) Urine RBC 1 /hpf (0 - 4) Urine Microscopic WBC 1 /HPF (0-5) Urine Squamous Epithelial Cells Few /hpf (<5) Urine Bacteria None seen /hpf (None Seen) Urine Hyaline Casts Few /lpf (0 - 2) Urine Glucose Normal mg/dL (Normal) Microbiology Microbiology Date/Time Source Procedure Growth Status 08/20/24 06:10 Nose MRSA Screen - Final Complete Assessment/Plan Assessment/Plan Breakthrough seizures Dementia History of depression and bipolar disorder Plan: Continue Keppra, increase dose to 750 mg twice a day Continue the other home medications including quetiapine 50 mg twice a day, lamotrigine 25 mg daily Celexa 40 mg daily Monitor closely Seizure precautions Full code Called the oleg Remy Neurology consult CT scan of the head is negative Plan discussed with: Patient (A in 2014 showed a hilar when saw a hip fracture which the hilar) Date of Service: August 20, 2024 Billing Provider: KATHLEEN KEE MD Common Visit Codes: [id number] INP/OBS CARE(HIGH) Secondary Visit Codes: [id number] CARE PLAN 30 MINUTES KATHLEEN KEE MD August 20, 2024 16:09
[2024-08-21] VITALS (8 sets, daily range): BP systolic 89–108; BP diastolic 56–67; PULSE 59–76; RESP 17–19; TEMP 97.8–98.2; O2SAT 94–98
--- NOTE | 2024-08-21 10:20 | DVHPN2 ---
Subjective No new complaints No seizures Changes from previous H/P or p: Changes Objective Vitals Vital Signs Date Time Temp Pulse Resp B/P (MAP) Pulse Ox O2 Delivery O2 Flow Rate FiO2 08/21/24 09:23 98.2 59 18 102/64 (77) 96 98.2 08/21/24 08:00 Room Air* 0 21 Intake/Output Intake and Output 08/21/24 07:00 Intake Total 1074 ml Balance 1074 ml Intake Oral 1074 ml # Voids 4 # Bowel Movements 1 General Appearance: Alert, Oriented X3 (Allows him) Lungs: Clear to auscultation (Kristi higher than I had a), Normal air movement Cardiovascular: Regular rate, Normal S1, Normal S2 Abdomen: Normal bowel sounds, Soft, No tenderness (HighlightNine felt iodine edmund hilar) Extremities: No edema Medications Current Medications Medications Dose Ordered Sig/Rusty Route Start Time Stop Time Status Last Admin Dose Admin Ondansetron HCl 4 mg Q4HP PRN IV 08/19/24 11:45 Enoxaparin Sodium 40 mg DAILY SC 08/20/24 10:00 08/21/24 10:04 40 MG Acetaminophen 650 mg Q6HP PRN PO 08/19/24 11:45 Patient Own Medication 1 tab DAILY PO 08/20/24 10:00 Citalopram Hydrobromide 40 mg DAILY PO 08/20/24 10:00 08/21/24 10:03 40 MG Cyanocobalamin 500 mcg DAILY PO 08/20/24 10:00 08/21/24 10:03 500 MCG Lamotrigine 25 mg DAILY PO 08/20/24 10:00 08/21/24 10:04 25 MG Quetiapine Fumarate 50 mg BID PO 08/19/24 22:00 08/21/24 10:03 50 MG Levetiracetam 750 mg BID PO 08/19/24 22:00 08/21/24 10:03 750 MG Laboratory Results Laboratory Tests 08/20/24 05:00 Urinalysis Test 08/19/24 05:20 Urine Color Light-yellow (Yellow) Urine Clarity Clear (Clear) Urine pH 6.5 (5.0-9.0) Urine Specific [place] 1.012 (1.001-1.035) Urine Protein Negative (Negative) Urine Ketones Negative (Negative) Urine Blood Negative /uL (Negative) Urine Nitrite Negative (Negative) Urine Bilirubin Negative (Negative) Urine Urobilinogen Normal mg/dL (Negative) Urine Leukocyte Esterase Negative /uL (Negative) Urine RBC 1 /hpf (0 - 4) Urine Microscopic WBC 1 /HPF (0-5) Urine Squamous Epithelial Cells Few /hpf (<5) Urine Bacteria None seen /hpf (None Seen) Urine Hyaline Casts Few /lpf (0 - 2) Urine Glucose Normal mg/dL (Normal) Microbiology Microbiology Date/Time Source Procedure Growth Status 08/20/24 06:10 Nose MRSA Screen - Final Complete Assessment/Plan Assessment/Plan Breakthrough seizures Dementia History of depression and bipolar disorder Plan: Continue Keppra, increase dose to 750 mg twice a day Continue the other home medications including quetiapine 50 mg twice a day, lamotrigine 25 mg daily Celexa 40 mg daily Monitor closely Seizure precautions Full code Called the oleg Remy Neurology consult CT scan of the head is negative 08/21/2024: Continue the current management with Keppra Monitor the patient closely Continue the other medications Plan discussed with: Patient Date of Service: August 21, 2024 Billing Provider: KATHLEEN KEE MD Common Visit Codes: [id number] INP/OBS CARE(HIGH) KATHLEEN KEE MD August 21, 2024 10:20
[2024-08-21] MEDS: LYBALVI PO SCH (22:02)
--- NOTE | 2024-08-21 22:31 | DVHINCON2 ---
Date of service: August 21, [address] Garvey Reason for Consultation Seizure History of Present Illness Ms. Colón is a 53 years old female with a history of depression, dementia, the patient was brought from her fdc to the [facility] on 08/21/2024 for witnessed seizure activity. At this time, the patient is easily arousable, oriented to himself only, not able to provide history. I saw her on 06/11/2024 for new onset seizure The patient was seen in the [facility] after her new onset seizure in 05/2024, and she was discharged with Keppra 500 mg b.i.d. her fdc paperwork showed dosage before she came was 750 mg b.i.d. On 06/09 24, the patient was had witnessed seizure activity in the [facility] ER (RN note 06/09/2024 1250 PT EXPERIENCED SEIZURE LIKE ACTIVITY DR SHEPHERD NOTIFIED, 1MG IV ATIVAN PER DR SHEPHERD. SEIZURE LASTED APPROXIMATELY 30 SECONDS) RPR, 06/11/24: Nonreactive UDS, 06/09/2024: Negative Plasma alcohol, 06/09/2024: <3 Urinalysis, 06/09/2024: WBC: 1, urine leukocyte esterase: Negative CBC, 06/10/2024: Unremarkable CMP, 06/10/2024: Unremarkable Vitamin B12, 06/10/2024: 299 Folic acid, 06/10/2024: 16.53 TSH, 06/10/2024: 1.61 EEG, 06/10/2024: Mildly abnormal MRI head, 06/09/2024: Unremarkable noncontrast MRI brain MRI head, 06/15/2024:No evidence of acute infarction, intracranial hemorrhage, mass effect or hydrocephalus. Past Medical History Depression, dementia Past Surgical History Denies all surgeries Family History: Diabetes mellitus G8 FATHER FH: cancer G8 FATHER Family History Diabetes, cancer Social History Smoker: Non-Smoker Alcohol: Denies ETOH Use Drugs: Denies Drug Use Lives In: Home Allergies: Coded Allergies: NO KNOWN ALLERGIES (Unverified , 06/09/24) Home Meds Active Scripts Levetiracetam (Keppra) 500 Mg Tab, 1 TAB PO BID, #180 TAB 3 Refills Prov:SANTOS WHITT MD 06/22/24 Reported Medications Levetiracetam (Keppra) 750 Mg Tab, 750 MG PO BID, TAB 08/19/24 Olanzapine-Samidorphan l-Malat (Lybalvi 10-10 mg) 1 Tab Tab, PO 08/19/24 Divalproex Sodium (Divalproex Sodium Dr) 125 Mg Tab, 1 TAB PO 08/19/24 Lamotrigine (Lamotrigine) 25 Mg Tab, 1 TAB PO DAILY 08/19/24 Quetiapine Fumerate (QUETIAPINE FUMARATE) 50 Mg Tab, 1 TAB PO BID 08/19/24 Cyanocobalamin (Gnp Vitamin B12) 500 Mcg Tab, 1 TAB PO DAILY 08/19/24 Citalopram Hydrobromide (Citalopram Hydrobromide) 40 Mg Tab, 1 TAB PO DAILY 06/09/24 Trazodone Hcl (Trazodone Hcl) 100 Mg Tab, 1-2 TAB PO HS 06/09/24 Brexpiprazole (Rexulti) 3 Mg Tab, 1 TAB PO DAILY 06/09/24 Current Medications Current Medications Medications (Trade) Dose Ordered Sig/Rusty Route PRN Reason Start Time Stop Time Status Last Admin Patient Own Medication 1 HS PO 08/21/24 22:00 08/21/24 22:02 Review of Systems As above, the other systems are negative Vital Signs Vital Signs Date Time Temp Pulse Resp B/P (MAP) Pulse Ox O2 Delivery O2 Flow Rate FiO2 08/21/24 21:00 98.2 76 18 104/56 (72) 94 98.2 08/21/24 20:00 Room Air* 0 21 Physical Exam GENERAL EXAM: General: the patient is well developed and nourished. No acute distress. HEENT: Normocephalic, neck is supple, no carotid bruits. No mass RESPIRATORY: Normal respiratory effort with symmetrical lung expansion. Lungs clear to auscultation. CARDIOVASCULAR: Regular rate and rhythm with no murmurs. S1, S2. ABDOMEN: Soft, nontender, normal bowel sound NEUROLOGICAL: MENTAL STATUS: HPI SPEECH, LANGUAGE, HIGHER CORTICAL FUNCTION: no aphasia or dysathria. CRANIAL NERVES: #2: Intact visual pacheco to confrontation. The optic discs were sharp #3,4,6: Pupils are equal, round and reactive. EOMs full and conjugate. #5: Facial sensation intact in all three divisions bilaterally. Mandibular strength intact. #7: Facial muscles symmetrical and strength intact. #8: Hearing grossly normal to voice. #9,10: Uvula and soft palate rise in the midline. Swallow and voice are normal. #11: Trapezius and sternomastoid strength intact bilaterally. #12: Tongue midline. No fasciculations or atrophy. SENSATION: Sensation to touch and pinprick is normal. MOTOR: Normal tone in the upper and lower extremity. Normal muscle bulk. No fasciculations. No abnormal movements or posturing. Muscle strength of the major groups in the upper extremities is 5/5. Muscle strength of the major groups in the lower extremities is 5/5. REFLEXES: Deep tendon reflexes normal and symmetrical. No pathological reflexes. CEREBELLAR/COORDINATION: Deferred, but no ataxia noticed in the arms GAIT/STATION: deferred. Labs/Diagnostic Data Labs Test 08/20/24 05:00 08/19/24 05:20 08/19/24 04:34 Range/Units White Blood Count 5.1 4.4-10.8 10^3/uL Red Blood Count 4.25 4.0-5.20 10^6/uL Hemoglobin 13.3 12.2-16.2 g/dL Hematocrit 39.4 36.0-46.0 % Mean Corpuscular Volume 92.7 80.0-100.0 fL Mean Corpuscular Hemoglobin 31.3 28.0-32.0 pg Mean Corpuscular Hemoglobin Concent 33.8 32.0-36.0 g/dL Red Cell Distribution Width 13.3 11.8-14.3 % Platelet Count 220 140-450 10^3/uL Mean Platelet Volume 8.2 6.9-10.8 fL Neutrophils (%) (Auto) 38.3 37.0-80.0 % Lymphocytes (%) (Auto) 49.8 10.0-50.0 % Monocytes (%) (Auto) 7.5 0.0-12.0 % Eosinophils (%) (Auto) 3.6 0.0-7.0 % Basophils (%) (Auto) 0.8 0.0-2.0 % Neutrophils # (Auto) 1.9 1.6-8.6 10 ^3/uL Lymphocytes # (Auto) 2.5 0.4-5.4 10 ^3/uL Monocytes # (Auto) 0.4 0-1.3 10 ^3/uL Eosinophils # (Auto) 0.2 0-0.8 10 ^3/uL Basophils # (Auto) 0 0-0.2 10 ^3/uL Nucleated Red Blood Cells 0.2 % Sodium Level 143 136-145 mmol/L Potassium Level 3.5 3.5-5.1 mmol/L Chloride Level 106 98-107 mmol/L Carbon Dioxide Level 27 20-31 mmol/L Anion Gap 10 5-15 Blood Urea Nitrogen 16 9-23 mg/dL Creatinine 1.02 0.550-1.02 mg/dL Glomerular Filtration Rate Calc 65 >90 mL/min BUN/Creatinine Ratio 15.7 10.0-20.0 Serum Glucose 82 74-106 mg/dL Calcium Level 9.5 8.7-10.4 mg/dL Total Bilirubin 1.1 H 0.2-1.0 mg/dL Aspartate Amino Transferase (AST) 11 L 13-40 U/L Alanine Aminotransferase (ALT) < 9 7-40 U/L Alkaline Phosphatase 65 46-116 U/L Total Protein 6.9 5.7-8.2 g/dL Albumin 4.4 3.2-4.8 g/dL Urine Color Light-yellow Yellow Urine Clarity Clear Clear Urine pH 6.5 5.0-9.0 Urine Specific [place] 1.012 1.001-1.035 Urine Protein Negative Negative Urine Ketones Negative Negative Urine Blood Negative Negative /uL Urine Nitrite Negative Negative Urine Bilirubin Negative Negative Urine Urobilinogen Normal Negative mg/dL Urine Leukocyte Esterase Negative Negative /uL Urine RBC 1 0 - 4 /hpf Urine Microscopic WBC 1 0-5 /HPF Urine Squamous Epithelial Cells Few <5 /hpf Urine Bacteria None seen None Seen /hpf Urine Hyaline Casts Few 0 - 2 /lpf Urine Glucose Normal Normal mg/dL Urine Opiates Screen Neg NEGATIVE Urine Fentanyl Screen Neg NEGATIVE Urine Barbiturates Screen Neg NEGATIVE Urine Phencyclidine Screen Neg NEGATIVE Urine Amphetamines Screen Neg NEGATIVE Urine Benzodiazepines Screen Neg NEGATIVE Urine Cocaine Screen Neg NEGATIVE Urine Cannabinoids Screen Neg NEGATIVE Levetiracetam Level <2.0 L 10.0-40.0 ug/mL Microbiology Date/Time Source Procedure Growth Status 08/20/24 06:10 Nose MRSA Screen - Final Complete Assessment New onset seizure Dementia Low vitamin B12 Plan/Recommendation Monitoring Supportive treatment Telemetry Increase the Keppra to 1000 mg b.i.d. Vitamin B12 supplementation Ativan for seizure breakthrough DVT prophylaxis/Lovenox A sitter in the room Progress: Poor This medical document was created using an electronic medical record system with [employer] dictation system. Although this document has been carefully reviewed, there may still be some phonetic and typographical errors. These areas are purely typographical due to imperfections of the software programs, and do not reflect any compromise in the patient's medical care. Plan discussed with: Other LORETO OLIVAREZ MD August 21, 2024 22:31
[2024-08-21] MEDS ORDERED: LORazepam 2MG/ML-1ML VIAL IV PRN (23:00)
[2024-08-21] MEDS: levETIRAcetam 500 MG TAB PO SCH (23:00)
[2024-08-21] MEDS: levETIRAcetam 500 MG TAB PO ONE (23:41)
[2024-08-22] VITALS (8 sets, daily range): BP systolic 96–125; BP diastolic 56–77; PULSE 66–106; RESP 16–18; TEMP 97.8–98.2; O2SAT 92–99
[2024-08-22] MEDS: ACETAMINOPHEN 325 MG TAB PO PRN (06:26)
--- NOTE | 2024-08-22 11:30 | DVHPN2 ---
Subjective No new complaints No seizures Changes from previous H/P or p: Changes Objective Vitals Vital Signs Date Time Temp Pulse Resp B/P (MAP) Pulse Ox O2 Delivery O2 Flow Rate FiO2 08/22/24 08:00 16 Room Air* 0 21 08/22/24 05:00 97.9 71 110/77 (88) 99 97.9 Intake/Output Intake and Output 08/22/24 07:00 Intake Total 700 ml Balance 700 ml Intake Oral 700 ml # Voids 3 General Appearance: Alert, Oriented X3 (Allows him) Lungs: Clear to auscultation (Kristi higher than I had a), Normal air movement Cardiovascular: Regular rate, Normal S1, Normal S2 Abdomen: Normal bowel sounds, Soft, No tenderness (HighlightNine felt iodine edmund hilar) Extremities: No edema Medications Current Medications Medications Dose Ordered Sig/Rusty Route Start Time Stop Time Status Last Admin Dose Admin Ondansetron HCl 4 mg Q4HP PRN IV 08/19/24 11:45 Enoxaparin Sodium 40 mg DAILY SC 08/20/24 10:00 08/22/24 10:28 40 MG Acetaminophen 650 mg Q6HP PRN PO 08/19/24 11:45 08/22/24 06:26 650 MG Patient Own Medication 1 tab DAILY PO 08/20/24 10:00 Citalopram Hydrobromide 40 mg DAILY PO 08/20/24 10:00 08/22/24 10:28 40 MG Cyanocobalamin 500 mcg DAILY PO 08/20/24 10:00 08/22/24 10:27 500 MCG Lamotrigine 25 mg DAILY PO 08/20/24 10:00 08/22/24 10:28 25 MG Quetiapine Fumarate 50 mg BID PO 08/19/24 22:00 08/22/24 10:27 50 MG Patient Own Medication 1 HS PO 08/21/24 22:00 08/21/24 22:02 1 Levetiracetam 1,000 mg BID PO 08/21/24 23:00 08/22/24 10:27 1,000 MG Lorazepam 1 mg Q5MINP PRN IV 08/21/24 23:00 Laboratory Results Laboratory Tests 08/20/24 05:00 Urinalysis Test 08/19/24 05:20 Urine Color Light-yellow (Yellow) Urine Clarity Clear (Clear) Urine pH 6.5 (5.0-9.0) Urine Specific [place] 1.012 (1.001-1.035) Urine Protein Negative (Negative) Urine Ketones Negative (Negative) Urine Blood Negative /uL (Negative) Urine Nitrite Negative (Negative) Urine Bilirubin Negative (Negative) Urine Urobilinogen Normal mg/dL (Negative) Urine Leukocyte Esterase Negative /uL (Negative) Urine RBC 1 /hpf (0 - 4) Urine Microscopic WBC 1 /HPF (0-5) Urine Squamous Epithelial Cells Few /hpf (<5) Urine Bacteria None seen /hpf (None Seen) Urine Hyaline Casts Few /lpf (0 - 2) Urine Glucose Normal mg/dL (Normal) Microbiology Microbiology Date/Time Source Procedure Growth Status 08/20/24 06:10 Nose MRSA Screen - Final Complete Assessment/Plan Assessment/Plan Breakthrough seizures Dementia History of depression and bipolar disorder Plan: Continue Keppra, increase dose to 750 mg twice a day Continue the other home medications including quetiapine 50 mg twice a day, lamotrigine 25 mg daily Celexa 40 mg daily Monitor closely Seizure precautions Full code Called the oleg Remy Neurology consult CT scan of the head is negative 08/21/2024: Continue the current management with Keppra Monitor the patient closely Continue the other medications 08/22/2024: Continue the current management Monitor the patient Out of bed as tolerated Discussed with her 2 sons at the bedside Discharge planning for tomorrow Plan discussed with: Patient, Son My Orders Orders - KATHLEEN KEE MD Procedure Category Date Status Time Patients Own PHA 08/21/24 In Process Medication 22:00 Date of Service: August 22, 2024 Billing Provider: KATHLEEN KEE MD Common Visit Codes: [id number] INP/OBS CARE(MOD) KATHLEEN KEE MD August 22, 2024 11:30
[2024-08-23 05:00] VITALS: BP 116/72; PULSE 51; RESP 17; TEMP 98.1; O2SAT 100
[2024-08-23 07:45] VITALS: RESP 16
[2024-08-23 09:17] VITALS: BP 116/73; PULSE 72; RESP 17; TEMP 98.4; O2SAT 97
[2024-08-23] MEDS ORDERED: LEVE750T15 PO (10:36)
--- NOTE | 2024-08-23 10:38 | DVHDS2 ---
Discharge Summary Date of Admission August 19, 2024 at 11:45 Date of Discharge: August 23, 2024 Labs/Diagnostic Data: Laboratory Results Test 08/20/24 05:00 08/19/24 05:20 08/19/24 04:34 White Blood Count 5.1 10^3/uL (4.4-10.8) Red Blood Count 4.25 10^6/uL (4.0-5.20) Hemoglobin 13.3 g/dL (12.2-16.2) Hematocrit 39.4 % (36.0-46.0) Mean Corpuscular Volume 92.7 fL (80.0-100.0) Mean Corpuscular Hemoglobin 31.3 pg (28.0-32.0) Mean Corpuscular Hemoglobin Concent 33.8 g/dL (32.0-36.0) Red Cell Distribution Width 13.3 % (11.8-14.3) Platelet Count 220 10^3/uL (140-450) Mean Platelet Volume 8.2 fL (6.9-10.8) Neutrophils (%) (Auto) 38.3 % (37.0-80.0) Lymphocytes (%) (Auto) 49.8 % (10.0-50.0) Monocytes (%) (Auto) 7.5 % (0.0-12.0) Eosinophils (%) (Auto) 3.6 % (0.0-7.0) Basophils (%) (Auto) 0.8 % (0.0-2.0) Neutrophils # (Auto) 1.9 10 ^3/uL (1.6-8.6) Lymphocytes # (Auto) 2.5 10 ^3/uL (0.4-5.4) Monocytes # (Auto) 0.4 10 ^3/uL (0-1.3) Eosinophils # (Auto) 0.2 10 ^3/uL (0-0.8) Basophils # (Auto) 0 10 ^3/uL (0-0.2) Nucleated Red Blood Cells 0.2 % Sodium Level 143 mmol/L (136-145) Potassium Level 3.5 mmol/L (3.5-5.1) Chloride Level 106 mmol/L (98-107) Carbon Dioxide Level 27 mmol/L (20-31) Anion Gap 10 (5-15) Blood Urea Nitrogen 16 mg/dL (9-23) Creatinine 1.02 mg/dL (0.550-1.02) Glomerular Filtration Rate Calc 65 mL/min (>90) BUN/Creatinine Ratio 15.7 (10.0-20.0) Serum Glucose 82 mg/dL (74-106) Calcium Level 9.5 mg/dL (8.7-10.4) Total Bilirubin 1.1 mg/dL (0.2-1.0) Aspartate Amino Transferase (AST) 11 U/L (13-40) Alanine Aminotransferase (ALT) < 9 U/L (7-40) Alkaline Phosphatase 65 U/L (46-116) Total Protein 6.9 g/dL (5.7-8.2) Albumin 4.4 g/dL (3.2-4.8) Urine Color Light-yellow (Yellow) Urine Clarity Clear (Clear) Urine pH 6.5 (5.0-9.0) Urine Specific [place] 1.012 (1.001-1.035) Urine Protein Negative (Negative) Urine Ketones Negative (Negative) Urine Blood Negative /uL (Negative) Urine Nitrite Negative (Negative) Urine Bilirubin Negative (Negative) Urine Urobilinogen Normal mg/dL (Negative) Urine Leukocyte Esterase Negative /uL (Negative) Urine RBC 1 /hpf (0 - 4) Urine Microscopic WBC 1 /HPF (0-5) Urine Squamous Epithelial Cells Few /hpf (<5) Urine Bacteria None seen /hpf (None Seen) Urine Hyaline Casts Few /lpf (0 - 2) Urine Glucose Normal mg/dL (Normal) Urine Opiates Screen Neg (NEGATIVE) Urine Fentanyl Screen Neg (NEGATIVE) Urine Barbiturates Screen Neg (NEGATIVE) Urine Phencyclidine Screen Neg (NEGATIVE) Urine Amphetamines Screen Neg (NEGATIVE) Urine Benzodiazepines Screen Neg (NEGATIVE) Urine Cocaine Screen Neg (NEGATIVE) Urine Cannabinoids Screen Neg (NEGATIVE) Levetiracetam Level <2.0 ug/mL (10.0-40.0) Other Laboratory Tests 08/20/24 05:00 Brief Hx & Hospital Course: Final diagnoses: Breakthrough seizures Dementia History of depression and bipolar disorder 53-year-old female with a history of seizures came with a chief complaint of a breakthrough seizure [facility] and was sent here because of the above She was taking Keppra 750 mg twice a day Here neurology saw the patient recommended to increase the dose to 1000 twice a day Throughout her hospitalization here, the patient did not have anymore seizures She is alert and oriented, she has a baseline dementia but she has follow commands and she is pleasant and cooperative The patient is stable for discharge Increase Keppra to 1000 mg twice a day Resume other home medications Follow up with her primary care physician as soon as possible Condition at Discharge: Stable Final Diagnosis/Problems List Seizures Discharge Disposition: Home SNF Discharge Will this Physician continue t: No Discharge Instruct/Medications Diet: Cardiac 2g Na,low cholest Activity: No Restrictions, As Tolerated Follow Up/Referral: PCP as soon as possible Medications: Increase Keppra to 750 mg twice a day Resume other home medications Discharge Statement: "Patient was advised to return to the ER or call 911 if any headaches, dizziness, shortness of breath, chest pain, abdominal pain, bleeding, fevers, or worsening of medical condition. Patient was counseled about treatment plan, medications, possible side effects, patient�verbalized understanding. All questions were answered to the best of my ability. This discharge took greater then 30 minutes in planning, reviewing documentation, counseling the patient, and discussing with other team members." ASSESSMENT ASSESSMENT Assessment Seizures Date of Service: August 23, 2024 Billing Provider: KATHLEEN KEE MD Common Visit Codes: [id number]/OBS DISCH DAY >30min KATHLEEN KEE MD August 23, 2024 10:38
[2024-08-23 13:00] VITALS: BP 116/79; PULSE 68; RESP 17; TEMP 98.3; O2SAT 96
[2024-08-23 13:52] VITALS: TEMP 36.9
[2024-08-23] MEDS ORDERED: LEVE100012 PO (15:17)
== END 2024-08-23 15:20 | disposition home or self-care (01) | DRG 53 ==
LOC: ER 03:59 → EDBD 03:59 → OVERFLOW 11:45 → CENTRAL 11:48
PROVIDERS: ADMIT Internal Medicine Geriatric Medicine; ATTEND Internal Medicine Geriatric Medicine
DX: G40.909 Epilepsy, unspecified, not intractable, without status epilepticus (principal); G30.9 Alzheimer's disease, unspecified; F02.83 Dementia in other diseases classified elsewhere, unspecified severity, with mood disturbance; F31.9 Bipolar disorder, unspecified; Z83.3 Family history of diabetes mellitus; Z80.1 Family history of malignant neoplasm of trachea, bronchus and lung; Z79.899 Other long term (current) drug therapy
CPT/HCPCS: 36415; 70450; 71045; 80048; 80053; 80307; 81001; 82542; 85025; 87081; 96365; G0378